=== PATIENT | female | born 1975 | race Two or more races ===

== ENCOUNTER 2018-07-16 05:51 | Inpatient (IN) | payer OTHER ==
[~2018-07-16] VITALS: Ht 152.4 cm; Wt 57.6 kg
[~2018-07-16 05:51] MED LIST: GLUC10TA18 PO; LEVO88TA3 PO; LISI10TA4 PO; OMEG350C PO
[2018-07-16 06:21] LABS: HEMATOCRIT 37.2 % (36.0-47.0)
[2018-07-16] MEDS ORDERED: IBUP200C25 PO (06:34)
[2018-07-16 06:55] LABS: HCG, SERUM QUALITATIVE NEGATIVE (NEGATIVE)
[2018-07-16] MEDS ORDERED: BUPIVACAINE HCL 0.25% 30 ML VIAL As Ordered ONE (07:08)
[2018-07-16] MEDS ORDERED: dexameTHASONE 4 MG/ML 1ML VIAL (J1100) As Ordered ONE (07:13)
[2018-07-16] MEDS ORDERED: fentaNYL 100 MCG/2 ML INJECTION (J3010) As Ordered ONE ×2 (07:13→08:32)
[2018-07-16] MEDS ORDERED: PROPOFOL 200 MG/20 ML VIAL As Ordered ONE (07:13)
[2018-07-16] MEDS ORDERED: LIDOCAINE 2% INJ 100 MG/5 ML SDV (FOR ANES.) As Ordered ONE (07:13)
[2018-07-16] MEDS ORDERED: ROCURONIUM BROMIDE 50 MG/5 ML VIAL As Ordered ONE ×2 (07:13→08:10)
[2018-07-16] MEDS ORDERED: MIDAZOLAM INJ 2 MG/2 ML VIAL (J2250) As Ordered ONE (07:15)
[2018-07-16] MEDS ORDERED: LR 1,000 ML IV ONE (07:15)
[2018-07-16] MEDS ORDERED: PHENYLephrine HCL 500 MCG/5 ML (100MCG/ML) SYRINGE (J2370) As Ordered ONE (07:44)
[2018-07-16] MEDS ORDERED: HYDROmorphone HCL 2 MG/ML 1ML VIAL (J1170) As Ordered ONE (08:08)
[2018-07-16] MEDS ORDERED: ESMOLOL INJ 100MG/10ML VIAL As Ordered ONE (08:34)
[2018-07-16] MEDS ORDERED: FLUORESCEIN 10% (100MG/ML) 5 ML VIAL As Ordered ONE (10:00)
[2018-07-16] MEDS ORDERED: PERCOCET 5MG/325MG TAB PO PRN ×3 (10:45→11:00)
[2018-07-16] MEDS ORDERED: ONDANSETRON 4MG/2ML VIAL (J2405) IV PRN ×2 (10:45→11:00)
[2018-07-16] MEDS: LR 1,000 ML IV SCH ×2 (11:00→18:12)
[2018-07-16] MEDS ORDERED: fentaNYL 100 MCG/2 ML INJECTION (J3010) IV PRN (11:00)
[2018-07-16] MEDS ORDERED: HYDROMORPHONE HCL 0.5 MG/ 0.5 ML SYRINGE (J1170 PER 1) IV PRN (11:00)
[2018-07-16] MEDS ORDERED: LR 1,000 ML IV SCH (11:00)
[2018-07-16 13:15] VITALS: BP 102/62
[2018-07-16 13:45] VITALS: BP 104/65
--- NOTE | 2018-07-16 15:44 | IPNPDOC ---
Text Note Date of Service The patient was seen on 07/16/18. NOTE POD 0 Ahsan is a 43yo F with AUB-L and dysmenorrhea now s/p uncomplicated LAVH with bilateral salpingectomy and cystoscopy, doing well the afternoon of POD 0. She notes she doesn't have any real pain in her abdomen, just very slight discomfort. She has been sleeping on and off since coming to her room from recovery. She has dodge in place draining clear yellow urine. Has not yet been out of bed to ambulate. She is drinking water without nausea or emesis, has not yet tried to eat. No f/c/CP/SOB. Vitals wnl, afebrile General: WDWN, NAD, resting in bed comfortably Abdomen: soft, appropriately tender to palpation without rebound or guarding, 3 trocar sites intact with no erythema/drainage and dermabond overlying Extremities: shawn hose on, no pain with palpation of calves UOP >75ml/hr Labs: pre-op H/H 12/37.2 Assessment: Ahsan is a 43yo F with AUB-L and dysmenorrhea now s/p uncomplicated LAVH with bilateral salpingectomy and cystoscopy, doing well the afternoon of POD 0. Pain well controlled, vitals wnl, benign exam. Hemodynamically stable with no e/o infection. Plan: -routine post-op care -vitals q4hr -regular diet, encourage hydration -IV toradol and PO percocet prn pain, also K pad -keep indwelling dodge until 0700 tomorrow then 6hr due to void after removal -ok to shower in the morning after catheter removed -CBC in the am -encourage use of IS and ambulation -anticipate discharge home tomorrow if meeting all milestones MD [facility] Fishbone, I+O Km MIRELES, I+O Laboratory Tests 07/16/18 06:04 Vital Signs Date Time Temp Pulse Resp B/P (MAP) Pulse Ox O2 Delivery O2 Flow Rate FiO2 07/16/18 12:53 66 16 126/73 (90) 97 07/16/18 12:00 97 07/16/18 11:35 2 Melissa Walter MD Jul 16, 2018 15:44
--- NOTE | 2018-07-16 17:46 | RO ---
DATE OF PROCEDURE: 07/16/2018 PREPROCEDURE DIAGNOSIS: Abnormal uterine bleeding - leiomyoma, dysmenorrhea. POSTPROCEDURE DIAGNOSIS: Abnormal uterine bleeding - leiomyoma, dysmenorrhea. PROCEDURE: Laparoscopic-assisted vaginal hysterectomy with bilateral salpingectomy and cystoscopy. SURGEON: Melissa Walter MD TILE CLASSIFIER: Manish Avila MD ANESTHESIA: [facility] CLINICAL SERVICE: Gynecology INDICATION FOR OPERATION: Ahsan is a 43-year-old female who has a longstanding history of abnormal uterine bleeding related to leiomyoma as well as dysmenorrhea. She was previously worked up at [facility] for hysterectomy, but unable to perform the procedure prior to [facility]. Endometrial biopsy was repeated, and after repeat counseling, the patient still desired hysterectomy. MATERIAL FORWARDED TO THE LAB: Uterus, cervix and portions of bilateral fallopian tubes. DESCRIPTION OF FINDINGS: Laparoscopic findings included large posterior uterine fibroid. Fallopian tubes were interrupted from prior tubal ligation. Ovaries were normal in appearance. Liver edge was normal in appearance. The appendix was not visualized. Hemostasis noted along all pedicle lines. Cystoscopy revealed a bubble at the dome of the bladder. No sutures or defects present and dye was present within the bladder. INFECTION CLASSIFICATION: II ESTIMATED BLOOD LOSS: 250 mL. IV FLUIDS: 1200 mL of lactated Ringer's. URINE OUTPUT: 200 mL. DESCRIPTION OF PROCEDURE: After obtaining informed consent, the patient was taken to the operating room. General endotracheal anesthesia was established, and the patient was placed in low lithotomy position. The patient was prepped and draped in usual sterile fashion. She received 2 grams of IV Ancef prophylactically. She was placed in Trendelenburg position. Niño catheter was placed. [place] speculum was placed in the vagina and visualization of the cervix was obtained. A brqlbj-km-ehbbe suture was placed on the anterior lip of the cervix using #0 Vicryl. I then placed the VCare uterine manipulator through the cervix after dilating with Hanks dilators. The uterus sounded to 7 cm. Once the VCare was positioned appropriately, it was tied down and the bivalve speculum was removed. The patient was taken out of Trendelenburg position, and a 5 mm incision was made in the infraumbilical fold beneath the subcutaneous tissue after anesthetizing with 0.25% Marcaine. Sheyla clamp was used to spread the subcutaneous tissue. Lower abdominal wall was manually grabbed and lifted up. Optiview trocar was placed at a 90 degree angle, laparoscope was advanced through the port and intra-abdominal placement was confirmed. No injury was noted below the point of entry. Continuous flow carbon dioxide began to establish a pneumoperitoneum at 15 mmHg pressure. Two other trocars were placed after anesthetizing with 0.25% marcaine, one in the right lower quadrant and one in the left lower quadrant, using direct visualization to avoid any prominent vessels and also any internal organs. Trocars were 5 mm in size and these were placed without issue. We then completed a thorough pelvic and abdominal survey beginning at the anterior cul-de-sac, anterior portion of the uterus, which were both normal in appearance. The left and right fallopian tubes were previously interrupted from a tubal ligation. Round ligaments, broad ligaments and ovaries were observed to be normal. There was a large uterine fibroid on the posterior aspect of the uterus, but the posterior cul-de-sac itself was observed to be normal. The survey of the upper abdomen revealed a normal liver edge. At that point, we used the LigaSure to excise just under the fimbria of the fallopian tubes and along the portion of the fallopian tube that was remaining on both sides, and these were removed up through the ports and handed off the field. Next, the left broad ligament was transected using the LigaSure. The ureters were noted bilaterally with adequate vermiculation. The utero-ovarian ligament was then transected on that side using the LigaSure, and the anterior leaf of the broad ligament was opened, and we attempted to skeletonize the uterine arteries on that side and then cauterize. This was done with the LigaSure down to the level of the internal os, and at this time, the left side of the bladder flap was made using the LigaSure as well as using traction. The same exact procedure was done on the right side. At this time, hemostasis was noted. We then performed the colpotomy using the laparoscopic monopolar L hook, excising along the cervical cup of the VCare. There was some extra bleeding, probably from a cervical branch of the uterine artery on the right side but that was coagulated with the LigaSure and complete hemostasis was ensured. Once the entire colpotomy was performed all around the cup of the VCare, we then turned our attention to the vagina. The patient was placed in high lithotomy position. The VCare was removed with the uterus and cervix from the vagina and retractors were placed in the vagina, suctioning was performed to remove any clots that had been present, and then the vaginal cuff was closed using #0 Vicryl in a running locking suture with uterosacral plication. Vagina was copiously irrigated and hemostasis was noted. All instruments were then removed from the vagina. Cystoscopy was completed in usual fashion showing fluorescein dye within the bladder, and there was a bubble at the dome of the bladder. No defects or sutures noted within the bladder. Cystoscope was removed from the urethra, and the Niño catheter was replaced. Attention was then paid back to the abdomen where pneumoperitoneum was reestablished. Reevaluation of the abdomen and pelvis showed adequate hemostasis along all pedicle lines. We placed Alex within the pelvis and noted again no bleeding. Lateral ports were removed under direct visualization followed by the umbilical port site after releasing all of the pneumoperitoneum. The port sites were reapproximated with #4-0 Monocryl sutures underlying the skin and then Dermabond overlying. I anesthetized with some more 0.25% Marcaine at all of the trocar sites. Hemostasis was noted for all incisions. The patient was taken out of lithotomy position. All counts were correct times two. The patient was awakened from general anesthesia and taken to recovery room in stable condition. ANNIE
[2018-07-16 18:00] VITALS: BP 117/72
[2018-07-16] MEDS: DOCUSATE SODIUM 100 MG CAP PO SCH (20:25)
[2018-07-16] MEDS: KETOROLAC 30 MG/ML VIAL (J1885) IV PRN (20:26)
[2018-07-16 22:00] VITALS: BP 105/60
[2018-07-17 02:00] VITALS: BP 102/57
[2018-07-17] MEDS: LR 1,000 ML IV SCH ×2 (03:00→11:03)
[2018-07-17 06:00] VITALS: BP 101/56
[2018-07-17 07:05] LABS: BASO % 0.1 % (0.0-1.0); EOS # 0.1 10^3/uL (0.0-0.50); EOS % 0.4 % (0.0-3.0); HEMATOCRIT 28.2 % (36.0-47.0); HEMOGLOBIN 9.1 g/dl (12.0-15.5); LYMPH # 3.2 10^3/uL (1.5-4.5); LYMPH % 28.5 % (24.0-44.0); MEAN CORPUSCULAR HGB CONC 32.3 g/dl (32.0-36.5); MEAN CORPUSCULAR VOLUME 83.7 fl (80.0-96.0); MONO # 0.8 10^3/uL (0.0-0.8); MONO % 6.7 % (0.0-5.0); NEUTROPHILS # 7.2 10^3/uL (1.8-7.7); NEUTROPHILS % 63.8 % (36.0-66.0); PLATELET COUNT, AUTOMATED 257 10^3/uL (150-450); RED BLOOD COUNT 3.37 10^6/uL (4.00-5.40); WHITE BLOOD COUNT 11.2 10^3/uL (4.0-10.0)
[2018-07-17] MEDS: DOCUSATE SODIUM 100 MG CAP PO SCH (09:06)
[2018-07-17] MEDS: KETOROLAC 30 MG/ML VIAL (J1885) IV PRN (10:02)
[2018-07-17] MEDS ORDERED: COLA100C5 PO (12:26)
[2018-07-17] MEDS ORDERED: OXYC1TAB23 PO ×2 (12:26)
--- NOTE | 2018-07-17 12:30 | IPNPDOC ---
Text Note Date of Service The patient was seen on 07/17/18. NOTE POD 1 Ahsan is a 43yo F with AUB-L and dysmenorrhea now s/p uncomplicated LAVH with bilateral salpingectomy and cystoscopy, doing well the afternoon of POD 1. She still doesn't have any real pain in her abdomen, just very slight discomfort. Niño was removed this morning and she has voided 3 times without issue. Tolerating soup and liquids, states throat is a bit scratchy so not yet wanting anything firmer than that to eat. Took a shower this morning and ambulating without lightheadedness. No f/c/n/v/CP/SOB. Vitals wnl, afebrile General: WDWN, NAD, resting in bed comfortably Abdomen: soft, appropriately tender to palpation without rebound or guarding, 3 trocar sites intact with no erythema/drainage and dermabond overlying Extremities: no pain with palpation of calves UOP >75ml/hr Labs: pre-op H/H 12/37.2 post-op H/H 9.1/28.2 Assessment: Ahsan is a 43yo F with AUB-L and dysmenorrhea now s/p uncomplicated LAVH with bilateral salpingectomy and cystoscopy, doing well the afternoon of POD 1. Pain well controlled, vitals wnl, benign exam. Hemodynamically stable with no e/o infection. Plan: -discharge to home -has home meds: motrin, percocet, colace -follow up with Dr. Walter scheduled 08/01 in [place] [facility] -keep incisions clean and dry, shower as normal -no heavy lifting and complete vaginal rest until cleared at future visit -return precautions discussed at length: fevers, chills, increasing abdominal pain, heavy vaginal bleeding, foul smelling vaginal discharge or any other concerns Dr. Melissa Walter MD VS,Km, I+O VS, Km, I+O Laboratory Tests 07/17/18 06:51 Red Blood Count 3.37 L, Mean Corpuscular Volume 83.7, Mean Corpuscular Hemoglobin 27.0, Mean Corpuscular Hemoglobin Concent 32.3, Red Cell Distribution Width 13.1, Neutrophils (%) (Auto) 63.8, Lymphocytes (%) (Auto) 28.5, Monocytes (%) (Auto) 6.7 H, Eosinophils (%) (Auto) 0.4, Basophils (%) (Auto) 0.1, Neutrophils # (Auto) 7.2, Lymphocytes # (Auto) 3.2, Monocytes # (Auto) 0.8, Eosinophils # (Auto) 0.1, Basophils # (Auto) 0.0 Vital Signs Date Time Temp Pulse Resp B/P (MAP) Pulse Ox O2 Delivery O2 Flow Rate FiO2 07/17/18 06:00 98.2 74 16 101/56 (71) 96 07/16/18 11:35 2 I&O- Last 24 Hours up to 6 AM 07/17/18 06:00 Intake Total 3045 ml Output Total 3000 ml Balance 45 ml Melissa Walter MD Jul 17, 2018 12:30
--- NOTE | 2018-07-17 12:34 | DS.PDOC ---
Discharge Summary General Date of Admission Jul 16, 2018 at 05:51 Date of Discharge Jul 17, 2018 Attending Physician: Melissa Walter MD Discharge Summary PROCEDURES PERFORMED DURING STAY: laparoscopic assisted vaginal hysterectomy, bilateral salpingectomy, cystoscopy ADMITTING DIAGNOSES: 1. abnormal uterine bleeding-leiomyoma, dysmenorrhea DISCHARGE DIAGNOSES: 1. abnormal uterine bleeding-leiomyoma, dysmenorrhea COMPLICATIONS/CHIEF COMPLAINT: Abnormal Uterine Bleeding, Dysmenorrhea, Endometriosis. HISTORY OF PRESENT ILLNESS/HOSPITAL COURSE: Ahsan is a 43yo F with AUB-L and dysmenorrhea now s/p uncomplicated LAVH with bilateral salpingectomy and cystoscopy. She had a benign post-operative course and on POD 1 she was discharged with pain well controlled, vitals wnl, benign exam. She was hemodynamically stable with no e/o infection. DISCHARGE MEDICATIONS: Please see below. ALLERGIES: Please see below. PHYSICAL EXAMINATION ON DISCHARGE: Vitals wnl, afebrile General: WDWN, NAD, resting in bed comfortably Abdomen: soft, appropriately tender to palpation without rebound or guarding, 3 trocar sites intact with no erythema/drainage and dermabond overlying Extremities: no pain with palpation of calves LABORATORY DATA: pre-op H/H 12/37.2 post-op H/H 9.1/28.2 DIET: regular DISPOSITION: Home DISCHARGE PLAN/INSTRUCTIONS: -discharge to home -has home meds: motrin, percocet, colace -follow up with Dr. Walter scheduled 08/01 in [place] [facility] -keep incisions clean and dry, shower as normal -no heavy lifting and complete vaginal rest until cleared at future visit -return precautions discussed at length: fevers, chills, increasing abdominal pain, heavy vaginal bleeding, foul smelling vaginal discharge or any other concerns DISCHARGE CONDITION: Stable TIME SPENT ON DISCHARGE: Greater than [address] Melissa Walter MD Vital Signs/I&Os Vital Signs Date Time Temp Pulse Resp B/P (MAP) Pulse Ox O2 Delivery O2 Flow Rate FiO2 07/17/18 06:00 98.2 74 16 101/56 (71) 96 07/16/18 11:35 2 I&O- Last 24 Hours up to 6 AM 07/17/18 06:00 Intake Total 3045 ml Output Total 3000 ml Balance 45 ml Laboratory Data Labs 24H Laboratory Tests 2 07/17/18 06:51: Immature Granulocyte % (Auto) 0.5, White Blood Count 11.2H, Red Blood Count 3.37L, Hemoglobin 9.1#L, Hematocrit 28.2L, Mean Corpuscular Volume 83.7, Mean Corpuscular Hemoglobin 27.0, Mean Corpuscular Hemoglobin Concent 32.3, Red Cell Distribution Width 13.1, Platelet Count 257, Neutrophils (%) (Auto) 63.8, Lymphocytes (%) (Auto) 28.5, Monocytes (%) (Auto) 6.7H, Eosinophils (%) (Auto) 0.4, Basophils (%) (Auto) 0.1, Neutrophils # (Auto) 7.2, Lymphocytes # (Auto) 3.2, Monocytes # (Auto) 0.8, Eosinophils # (Auto) 0.1, Basophils # (Auto) 0.0, Nucleated Red Blood Cells % (auto) 0.0 CBC/BMP Laboratory Tests 07/17/18 06:51 Red Blood Count 3.37 L, Mean Corpuscular Volume 83.7, Mean Corpuscular Hemoglobin 27.0, Mean Corpuscular Hemoglobin Concent 32.3, Red Cell Distribution Width 13.1, Neutrophils (%) (Auto) 63.8, Lymphocytes (%) (Auto) 28.5, Monocytes (%) (Auto) 6.7 H, Eosinophils (%) (Auto) 0.4, Basophils (%) (Auto) 0.1, Neutrophils # (Auto) 7.2, Lymphocytes # (Auto) 3.2, Monocytes # (Auto) 0.8, Eosinophils # (Auto) 0.1, Basophils # (Auto) 0.0 Discharge Medications Scheduled ([place]-3 350 mg) 1 Cap Cap, 1 CAP PO DAILY, (Reported) Docusate Sodium (Colace) 100 Mg Cap, 1 CAP PO BID, (Reported) Glipizide (Glucotrol Xl) 10 Mg Tab, 10 MG PO DAILY, (Reported) Levothyroxine Sodium (Synthroid) 88 Mcg Tab, 88 MCG PO DAILY, (Reported) Lisinopril (Lisinopril) 10 Mg Tab, 10 MG PO DAILY, (Reported) Scheduled PRN Oxycodone/Acetaminophen (Oxycodone/Acetaminophen 5-325 mg) 1 Tab Tab, 2 TAB PO Q6HP PRN for pain, (Reported) Oxycodone/Acetaminophen (Oxycodone/Acetaminophen 5-325 mg) 1 Tab Tab, 1 TAB PO Q4HP PRN for pain, (Reported) Miscellaneous Medications Ibuprofen (Ibuprofen) 200 Mg Cap, 200 MG PO, (Reported) Allergies Coded Allergies: No Known Allergies (Unverified , 07/09/18) Melissa Walter MD Jul 17, 2018 12:34
== END 2018-07-17 12:50 | disposition home or self-care (01) | DRG 743 ==
LOC: M OR 05:51 → M MS5PR 13:10
PROVIDERS: ADMIT Obstetrics & Gynecology; ATTEND Obstetrics & Gynecology
PROC: 0UTC4ZZ Resection of Cervix, Percutaneous Endoscopic Approach (ICD-10-PCS; 2018-07-16)
PROC: 0TJB8ZZ Inspection of Bladder, Via Natural or Artificial Opening Endoscopic (ICD-10-PCS; 2018-07-16)
PROC: 0UT94ZZ Resection of Uterus, Percutaneous Endoscopic Approach (ICD-10-PCS; principal; 2018-07-16 07:30)
PROC: 0UT74ZZ Resection of Bilateral Fallopian Tubes, Percutaneous Endoscopic Approach (ICD-10-PCS; 2018-07-16 07:30)
DX: N94.6 Dysmenorrhea, unspecified (principal); N93.9 Abnormal uterine and vaginal bleeding, unspecified; D25.1 Intramural leiomyoma of uterus; D25.2 Subserosal leiomyoma of uterus; E03.9 Hypothyroidism, unspecified; I10 Essential (primary) hypertension; E11.9 Type 2 diabetes mellitus without complications; E55.9 Vitamin D deficiency, unspecified; E66.3 Overweight; Z68.25 Body mass index [BMI] 25.0-25.9, adult; Z79.84 Long term (current) use of oral hypoglycemic drugs; Z79.899 Other long term (current) drug therapy

== ENCOUNTER 2018-10-28 11:06 | Emergency (ER) | payer OTHER ==
[~2018-10-28] VITALS: Ht 152.4 cm; Wt 57.7 kg
[~2018-10-28 11:06] MED LIST changes: +COLA100C5 PO; +IBUP200C25 PO; +OXYC1TAB23 PO
[2018-10-28] MEDS ORDERED: LISI-542 PO (11:30)
[2018-10-28] MEDS ORDERED: GLIP10TA18 (11:30)
[2018-10-28] MEDS ORDERED: CYCL5TAB (11:30)
[2018-10-28] MEDS ORDERED: SYNT88TA2 (11:30)
[2018-10-28] MEDS ORDERED: MEDR4PAK PO (16:42)
[2018-10-28 16:48] VITALS: BP 164/82
--- NOTE | 2018-10-28 17:24 | REP ---
RIGHT SHOULDER, THREE VIEWS: SHOULDER: There is no evidence of an acute fracture, dislocation or intrinsic bone disease. IMPRESSION: No fracture or dislocation. Electronically Signed by Humza Brantley MD 10/29/2018 04:24 P
--- NOTE | 2018-10-28 17:25 | REP ---
RIGHT CLAVICLE, TWO VIEWS: Two views of the right clavicle are performed and demonstrate no fracture, dislocation, or intrinsic bone disease. IMPRESSION: No fracture or dislocation. Electronically Signed by Humza Brantley MD 10/29/2018 04:24 P
== END 2018-10-28 16:53 | disposition home or self-care (01) ==
LOC: M ED 11:06
DX: S13.4XXA Sprain of ligaments of cervical spine, initial encounter (principal); V49.49XA Driver injured in collision with other motor vehicles in traffic accident, initial encounter; Y92.410 Unspecified street and highway as the place of occurrence of the external cause; M54.12 Radiculopathy, cervical region; E11.9 Type 2 diabetes mellitus without complications; I10 Essential (primary) hypertension; E03.9 Hypothyroidism, unspecified; Z79.899 Other long term (current) drug therapy; Z79.890 Hormone replacement therapy; Z79.84 Long term (current) use of oral hypoglycemic drugs

== ENCOUNTER 2019-02-28 16:01 | Emergency (ER) | payer OTHER ==
[~2019-02-28] VITALS: Ht 152.4 cm; Wt 53.3 kg
[~2019-02-28 16:01] MED LIST changes: +CYCL5TAB; +GLIP10TA18; +LISI-542 PO; +MEDR4PAK PO; +SYNT88TA2
[2019-02-28] MEDS ORDERED: TRUL10IN SC (16:44)
[2019-02-28] MEDS ORDERED: JARD1TAB PO (16:44)
[2019-02-28 16:59] LABS: BASO % 0.2 % (0.0-1.0); EOS # 0.2 10^3/uL (0.0-0.5); EOS % 1.2 % (0.0-3.0); HEMATOCRIT 44.8 % (36.0-47.0); HEMOGLOBIN 14.8 g/dl (12.0-15.5); LYMPH % 31.3 % (24.0-44.0); MEAN CORPUSCULAR HEMOGLOBIN 28.1 pg (27.0-33.0); MEAN CORPUSCULAR VOLUME 85.2 fl (80.0-96.0); MONO # 0.9 10^3/uL (0.0-0.8); MONO % 6.8 % (0.0-5.0); NEUTROPHILS # 7.7 10^3/uL (1.5-8.5); NEUTROPHILS % 60.3 % (36.0-66.0); PLATELET COUNT, AUTOMATED 350 10^3/uL (150-450); RED BLOOD COUNT 5.26 10^6/uL (4.00-5.40); WHITE BLOOD COUNT 12.8 10^3/uL (4.0-10.0)
[2019-02-28 17:37] LABS: BLOOD UREA NITROGEN 21 MG/DL (7-18); CALCIUM LEVEL 9.6 MG/DL (8.5-10.1); CARBON DIOXIDE LEVEL 26 MEQ/L (21-32); CHLORIDE LEVEL 103 MEQ/L (98-107); CK-MB VALUE MASS < 1.0 NG/ML (<3.6); CPK CREATINE PHOSPHOKINASE 48 U/L (26-192); CREATININE FOR GFR 0.79 MG/DL (0.55-1.30); FREE T4 1.59 NG/DL (0.76-1.46); GLOMERULAR FILTRATION RATE > 60.0 (>58); GLUCOSE, FASTING 158 MG/DL (70-100); MB/CK RELATIVE INDEX 2.08 (< OR =4); POTASSIUM SERUM 4.2 MEQ/L (3.5-5.1); SODIUM LEVEL 135 MEQ/L (136-145); THYROID STIMULATING HORMONE 0.147 uIU/ML (0.358-3.740); TROPONIN I < 0.02 NG/ML (< 0.10)
[2019-02-28] MEDS ORDERED: NS 1,000 ML IV ONE (18:15)
--- NOTE | 2019-02-28 19:09 | REP ---
Chest x-ray: Two views. History: Syncope . Comparison study: No comparison chest x-ray. . Findings: The lungs are well inflated and free of infiltrate. The pleural angles are sharp. The heart size is normal. Pulmonary vasculature is not increased. No significant bony abnormality is seen. Monitoring electrodes are visible. Impression: Negative chest x-ray. Electronically Signed by Derik Moreno MD 02/28/2019 07:01 P
[2019-02-28 19:20] VITALS: BP 120/76
--- NOTE | 2019-02-28 20:21 | ECGEPIP ---
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
== END 2019-02-28 19:38 | disposition home or self-care (01) ==
LOC: M ED 16:01
DX: R55 Syncope and collapse (principal); E11.9 Type 2 diabetes mellitus without complications; M79.7 Fibromyalgia; I95.1 Orthostatic hypotension; R94.6 Abnormal results of thyroid function studies; Z79.899 Other long term (current) drug therapy

== ENCOUNTER 2019-03-03 16:01 | Emergency (ER) | payer OTHER ==
[~2019-03-03] VITALS: Ht 152.4 cm; Wt 55.2 kg
[~2019-03-03 16:01] MED LIST changes: +JARD1TAB PO; +TRUL10IN SC
[2019-03-03] MEDS ORDERED: ATOR1TAB19 PO (16:25)
[2019-03-03 18:21] LABS: CK-MB VALUE MASS < 1.0 NG/ML (<3.6); CPK CREATINE PHOSPHOKINASE 57 U/L (26-192); MB/CK RELATIVE INDEX 1.75 (< OR =4); TROPONIN I < 0.02 NG/ML (< 0.10)
[2019-03-03 18:45] VITALS: BP 109/62
--- NOTE | 2019-03-04 10:05 | ECGEPIP ---
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
== END 2019-03-03 19:03 | disposition home or self-care (01) ==
LOC: M ED 16:01
DX: R07.89 Other chest pain (principal); E11.9 Type 2 diabetes mellitus without complications; E03.9 Hypothyroidism, unspecified; E78.00 Pure hypercholesterolemia, unspecified; Z79.899 Other long term (current) drug therapy

== ENCOUNTER 2019-03-23 17:29 | Emergency (ER) | payer OTHER ==
[~2019-03-23] VITALS: Ht 152.4 cm; Wt 51.8 kg
[~2019-03-23 17:29] MED LIST changes: +ATOR1TAB19 PO
[2019-03-23] MEDS ORDERED: REGL10TA6 PO (18:08)
[2019-03-23] MEDS ORDERED: METOCLOPRAMIDE INJ 10MG/2ML VIAL (J2765) IV ONE (18:15)
[2019-03-23] MEDS ORDERED: NS 1,000 ML IV ONE (18:15)
[2019-03-23 18:37] LABS: BASO % 0.1 % (0.0-1.0); EOS # 0.1 10^3/uL (0.0-0.5); EOS % 1.1 % (0.0-3.0); HEMATOCRIT 40.4 % (36.0-47.0); HEMOGLOBIN 12.8 g/dl (12.0-15.5); LYMPH # 3.2 10^3/uL (1.5-5.0); LYMPH % 31.4 % (24.0-44.0); MEAN CORPUSCULAR HEMOGLOBIN 27.1 pg (27.0-33.0); MEAN CORPUSCULAR HGB CONC 31.7 g/dl (32.0-36.5); MEAN CORPUSCULAR VOLUME 85.6 fl (80.0-96.0); MONO # 0.6 10^3/uL (0.0-0.8); MONO % 6.2 % (0.0-5.0); NEUTROPHILS # 6.2 10^3/uL (1.5-8.5); NEUTROPHILS % 60.8 % (36.0-66.0); PLATELET COUNT, AUTOMATED 304 10^3/uL (150-450); RED BLOOD COUNT 4.72 10^6/uL (4.00-5.40); WHITE BLOOD COUNT 10.2 10^3/uL (4.0-10.0)
[2019-03-23 19:13] LABS: ALBUMIN 3.3 GM/DL (3.2-5.2); ALT/SGPT 21 U/L (12-78); BILIRUBIN,DIRECT < 0.1 MG/DL (0.0-0.2); BILIRUBIN,TOTAL 0.3 MG/DL (0.2-1.0); LIPASE 75 U/L (73-393); TOTAL PROTEIN 6.8 GM/DL (6.4-8.2)
[2019-03-23 19:43] VITALS: BP 123/73
== END 2019-03-23 20:00 | disposition home or self-care (01) ==
LOC: M ED 17:29
DX: R11.10 Vomiting, unspecified (principal); E11.9 Type 2 diabetes mellitus without complications; I10 Essential (primary) hypertension; E78.5 Hyperlipidemia, unspecified; E07.9 Disorder of thyroid, unspecified; Z79.899 Other long term (current) drug therapy
CPT/HCPCS: 80047; 80076; 83690; 85025; 96361; 96374; 99284; J2765

== ENCOUNTER 2019-03-27 16:07 | Emergency (ER) | payer OTHER ==
[~2019-03-27] VITALS: Ht 152.4 cm; Wt 50.8 kg
[~2019-03-27 16:07] MED LIST changes: +REGL10TA6 PO; -SYNT88TA2; +SYNT88TA2 PO
[2019-03-27 16:54] LABS: BASO % 0.2 % (0.0-1.0); EOS # 0.1 10^3/uL (0.0-0.5); EOS % 0.3 % (0.0-3.0); HEMOGLOBIN 13.1 g/dl (12.0-15.5); LYMPH # 3.3 10^3/uL (1.5-5.0); LYMPH % 21.7 % (24.0-44.0); MEAN CORPUSCULAR HEMOGLOBIN 26.8 pg (27.0-33.0); MEAN CORPUSCULAR HGB CONC 31.2 g/dl (32.0-36.5); MEAN CORPUSCULAR VOLUME 86.1 fl (80.0-96.0); MONO # 0.8 10^3/uL (0.0-0.8); MONO % 5.5 % (0.0-5.0); NEUTROPHILS # 10.8 10^3/uL (1.5-8.5); PLATELET COUNT, AUTOMATED 347 10^3/uL (150-450); RED BLOOD COUNT 4.88 10^6/uL (4.00-5.40)
[2019-03-27 17:11] LABS: ALBUMIN 3.7 GM/DL (3.2-5.2); ALT/SGPT 21 U/L (12-78); BILIRUBIN,DIRECT 0.2 MG/DL (0.0-0.2); BILIRUBIN,TOTAL 0.6 MG/DL (0.2-1.0); BLOOD UREA NITROGEN 14 MG/DL (7-18); CALCIUM LEVEL 9.4 MG/DL (8.5-10.1); CARBON DIOXIDE LEVEL 27 MEQ/L (21-32); CHLORIDE LEVEL 102 MEQ/L (98-107); CREATININE FOR GFR 0.69 MG/DL (0.55-1.30); GLOMERULAR FILTRATION RATE > 60.0 (>58); GLUCOSE, FASTING 135 MG/DL (70-100); LIPASE 68 U/L (73-393); POTASSIUM SERUM 4.3 MEQ/L (3.5-5.1); SODIUM LEVEL 137 MEQ/L (136-145); TOTAL PROTEIN 7.8 GM/DL (6.4-8.2)
[2019-03-27] MEDS ORDERED: DOXY150C PO (17:25)
[2019-03-27] MEDS ORDERED: METF750T36 PO (17:25)
[2019-03-27] MEDS ORDERED: ONDA4TAB6 PO (17:27)
[2019-03-27] MEDS ORDERED: PANTOPRAZOLE 40MG INJ (PROTONIX) (C9113) IV ONE (18:15)
[2019-03-27] MEDS ORDERED: KETOROLAC 30 MG/ML VIAL (J1885) IV ONE (18:15)
[2019-03-27] MEDS ORDERED: METOCLOPRAMIDE INJ 10MG/2ML VIAL (J2765) IV ONE (18:15)
[2019-03-27] MEDS ORDERED: NS 1,000 ML IV ONE (18:15)
[2019-03-27] MEDS ORDERED: GI COCKTAIL 50ML BTL(HYOSCYAMINE/MAALOX/LIDOCAINE VISCOUS)(1:3:1) PO ONE (18:15)
[2019-03-27] MEDS ORDERED: ISOVUE-370 76% 100ML VIAL (Q9967) As Ordered ONE (18:23)
[2019-03-27 18:56] LABS: ERYTHROCYTE SEDIMENTATION RATE 26 mm/hr (0-20)
--- NOTE | 2019-03-27 18:56 | REPVR ---
PROCEDURE INFORMATION: Exam: CT Head Without Contrast Exam date and time: 03/27/2019 6:05 PM Clinical history: 44 years old, female; Other: Umbilical pain, [id number]; Additional info: Umbilical abd pain, v x 6wks TECHNIQUE: Imaging protocol: Computed tomography of the head without contrast. Radiation optimization: All CT scans at this facility use at least one of these dose optimization techniques: automated exposure control; mA and/or kV adjustment per patient size (includes targeted exams where dose is matched to clinical indication); or iterative reconstruction. COMPARISON: No relevant prior studies available. FINDINGS: Brain: No acute intracranial hemorrhage, cerebral edema, or midline shift. Ventricles: No hydrocephalus. Bones/joints: No acute fracture. Sinuses: No acute sinusitis. Mastoid air cells: Visualized mastoid air cells are well aerated. Soft tissues: Unremarkable. IMPRESSION: No acute intracranial abnormality. Electronically signed by: Jesus Jordan On 03/27/2019 18:56:07 PM
[2019-03-27 18:57] LABS: FREE T4 1.43 NG/DL (0.76-1.46); MAGNESIUM LEVEL 1.6 MG/DL (1.8-2.4); THYROID STIMULATING HORMONE 0.083 uIU/ML (0.358-3.740)
--- NOTE | 2019-03-27 19:02 | REPVR ---
PROCEDURE INFORMATION: Exam: CT Abdomen And Pelvis With Contrast Exam date and time: 03/27/2019 6:05 PM Clinical history: 44 years old, female; Vomiting; Abdominal pain; Periumbilical; Additional info: Umbilical abd pain, v x 6wks TECHNIQUE: Imaging protocol: Computed tomography of the abdomen and pelvis with intravenous contrast. Radiation optimization: All CT scans at this facility use at least one of these dose optimization techniques: automated exposure control; mA and/or kV adjustment per patient size (includes targeted exams where dose is matched to clinical indication); or iterative reconstruction. Contrast material: ISOVUE 370; Contrast volume: 100 ml; Contrast route: IV; COMPARISON: No relevant prior studies available. FINDINGS: Liver: Several ill-defined enhancing areas or lesions are noted within the liver. Several of the areas measure up to 2.5 cm. These could represent flash filling hemangiomas, transient hepatic attenuation differences, and/or areas of focal fatty sparing. This could be further evaluated with an ultrasound or a follow-up liver mass protocol enhanced MRI or CT. Gallbladder and bile ducts: Normal. No calcified stones. No ductal dilation. Pancreas: Normal. No ductal dilation. Spleen: Normal. No splenomegaly. Adrenals: Normal. No mass. Kidneys and ureters: Normal. No hydronephrosis. Stomach and bowel: Unremarkable. No obstruction. No mucosal thickening. Appendix: A normal appendix is seen within the right lower quadrant. Intraperitoneal space: Unremarkable. No free air. No significant fluid collection. Vasculature: Unremarkable. No abdominal aortic aneurysm. Lymph nodes: Unremarkable. No enlarged lymph nodes. Bladder: Unremarkable as visualized. Reproductive: A 15 mm corpus luteal cyst is noted in the right ovary. The patient is status post hysterectomy. Bones/joints: Unremarkable. No acute fracture. Soft tissues: Unremarkable. IMPRESSION: 1. Several ill-defined enhancing lesions within the liver as discussed above. 2. 15 mm corpus luteal cyst in the right ovary COMMENT: Consistent with the [employer]'s Incidental Findings Committee Report (J Am Annabella Radiol 2010): Unless the patient's specific circumstances suggest otherwise, any liver lesion 0.5 cm or less, any cystic kidney lesion less than 1.0 cm, and/or any adrenal lesion 1.0 cm or less not otherwise characterized in this report as possessing suspicious or indeterminate imaging features is/are highly likely to be benign and do not require follow-up imaging or biopsy. Electronically signed by: Jesus Jordan On 03/27/2019 19:02:15 PM
[2019-03-27] MEDS ORDERED: REGL10TA6 PO (21:06)
[2019-03-27] MEDS ORDERED: PROT1TAB2 PO (21:06)
[2019-03-27 21:14] VITALS: BP 111/67
--- NOTE | 2019-03-28 07:33 | ED PDOC ---
Post-Departure Follow-Up dr banks faxed formal report of ct abd/p for fu Shimon Baca MD Mar 28, 2019 07:33
== END 2019-03-27 21:31 | disposition home or self-care (01) ==
LOC: M ED 16:07
DX: G43.A1 Cyclical vomiting, in migraine, intractable (principal); R94.6 Abnormal results of thyroid function studies; R10.84 Generalized abdominal pain; N83.291 Other ovarian cyst, right side; E11.9 Type 2 diabetes mellitus without complications; I10 Essential (primary) hypertension; E78.5 Hyperlipidemia, unspecified; E03.9 Hypothyroidism, unspecified; A69.20 Lyme disease, unspecified; Z79.84 Long term (current) use of oral hypoglycemic drugs; Z79.899 Other long term (current) drug therapy
CPT/HCPCS: 36415; 70450; 74177; 80048; 80076; 81001; 83690; 83735; 84439; 84443; 85025; 85652; 86140; 96361; 96374; 96375; 99284; C9113; J1885; J2765; Q9967

== ENCOUNTER → 2020-02-03 | Outpatient (CLI) | payer OTHER ==
[~2020-02-03] MED LIST changes: +DOXY150C PO; +METF750T36 PO; +ONDA4TAB6 PO; +PROT1TAB2 PO
--- NOTE | 2020-02-12 09:34 | REP ---
LIMITED ABDOMINAL ULTRASOUND CLINICAL: Possible liver mass on recent CT. COMPARISON: CT dated 03/27/2019. TECHNIQUE: Real-time barber scale ultrasound examination using curved array transducer. FINDINGS: The liver is normal in contour, size, and parenchymal echotexture without focal hepatic lesions identified by ultrasound. The pancreas is normal in appearance. The gallbladder is unremarkable and without gallstones, wall thickening, or pericholecystic fluid. No biliary ductal dilatation is appreciated and the common bile duct measures 3.7 mm in diameter. The right kidney is normal in reniform shape and measures 9.7 x 4.6 x 4.0 cm without hydronephrosis. Visualized portions of the abdominal aorta appear normal. No ascites in the right upper quadrant. IMPRESSION: Essentially normal appearance to the liver by ultrasound. The subtle hyperdense lesions noted scattered throughout the liver on recent CT are not identifiable by ultrasound. Consider pre- and postcontrast CT or MRI of the abdomen for further investigation. MTDD
== END ==
LOC: M RAD 07:31
PROVIDERS: ATTEND Specialist
DX: R16.0 Hepatomegaly, not elsewhere classified (principal)

== ENCOUNTER → 2020-04-14 | Outpatient (CLI) | payer OTHER ==
--- NOTE | 2020-04-14 13:36 | DEXAMM ---
INDICATION: HX VIT D DEFICIENCT,EVALUATE FOR OSTEOPOROSIS. COMPARISON: None. TECHNIQUE: Bone density was measured using dual-energy x-ray absorptionmetry (DEXA). FINDINGS: AP SPINE L1-L4 BMD 1.018 g/cm2 Young Adult T-Score -1.4 Age Matched Z-Score -1.3. LT FEMUR, TOTAL BMD 0.922 g/cm2 Young Adult T-Score -0.7 Age Matched Z-Score -0.3. LT NECK BMD 0.834 g/cm2 Young Adult T-Score -1.5 Age Matched Z-Score -0.8. RT FEMUR, TOTAL BMD 0.951 g/cm2 Young Adult T-Score -0.5 Age Matched Z-Score -0.1. RT NECK BMD 0.875 g/cm2 Young Adult T-Score -1.2 Age Matched Z-Score -0.5. IMPRESSION: There is low bone density of the spine. There is low bone density of the left hip. There is low bone density of the right hip. FOLLOW-UP: Recommendation for the next bone density exam: 2 years. <Electronically signed by Everett Moreno > 04/14/20 [id number]
== END ==
LOC: M WHC 12:26
PROVIDERS: ATTEND Podiatrist Foot & Ankle Surgery
DX: E55.9 Vitamin D deficiency, unspecified (principal); M81.0 Age-related osteoporosis without current pathological fracture

== ENCOUNTER → 2020-06-02 | Outpatient (REF) | payer OTHER ==
[~2020-06-02] MED LIST changes: -LISI-542 PO; +LISI-898 PO; +LISI10TA22 PO; -LISI10TA4 PO
[2020-06-02 18:35] LABS: MAU/CREAT RATIO 6.9 MCG/MG (0.0-30.0)
== END ==
LOC: M LAB REF 16:46
PROVIDERS: ATTEND Nurse Practitioner Family
DX: E11.65 Type 2 diabetes mellitus with hyperglycemia (principal)

== ENCOUNTER 2021-03-02 20:37 | Emergency (ER) | payer OTHER ==
[~2021-03-02] VITALS: Ht 152.4 cm; Wt 56.7 kg
--- OUTSIDE RECORDS SUMMARY | 2021-03-02 20:47 | CCD | Continuity of Care Document ---
Author Author Ahsan MCCLELLAND MD Organization Unknown Address [address] [place] [address] Phone [phone] Care Team Providers Care Chassis Wirer Name Role Phone Katerine Valencia [phone] Problems Active Problems Provider Date Essential hypertension Melquiades Mcclelland MD Onset: 01/19/2021 Pure hypercholesterolemia Melquiades Mcclelland MD Onset: 021 Social History Type Date Description Comments Sex Unknown ETOH Use Rarely consumes alcohol Tobacco Use Start: Unknown Denies Smoking Smoking Status Reviewed: 01/19/21 Denies Smoking Allergies, Adverse Reactions, Alerts Description No Known Drug Allergies Medications Description No Active Medications Immunizations Description No Information Available Vital Signs Description No Information Available Results Description No Information Available Procedures Date Code Description Status 01/18/2021 69148 Office/Outpatient New Moderate M DM 45-59 Minutes Completed 01/18/2021 68516 Inject Tendon Sheath, Ligament C ompleted 01/18/2021 60604 Inject Tendon Sheath, Ligament C ompleted Medical Devices Description No Information Available Encounters Type Date Location Provider Dx Diagnosis Office Visit 01/18/2021 3:15p [place] Melquiades Mcclelland MD M65.4 Radial styloid tenosynovitis [de Quervain] Assessments Date Code Description Provider 01/18/2021 M65.4 Radial styloid tenosynovitis [de Quervain] Melquiades Mcclelland MD Plan of Treatment 01/18/2021 - Melquiades Mcclelland MD* M65.4 Radial styloid tenosynovitis [de Quervain]* Follow up:* f/u in 8-10 weeks roberto carlos wrist recheck Functional Status Description No Information Available Mental Status Description No Information Available Referrals Refer to Reason for Referral Status Appt Date Melquiades Mcclelland MD O/V Created [address] [facility], [address] [place], [place] [id number] [phone] Melquiades Mcclelland MD [id number] PAIN IN RT HAND [id number] PAIN IN LT HAND Created [address] [facility], [address] [id number] [phone]
--- OUTSIDE RECORDS SUMMARY | 2021-03-02 20:47 | CCD | Continuity of Care Document ---
Author Author Ahsna MCCLELLAND MD Organization Unknown Address [address] [place] [address] Phone [phone] Care Team Providers Care Learning Developer Name Role Phone Katerine Valencia [phone] Problems Description No Information Available Social History Type Date Description Comments Sex Unknown Allergies, Adverse Reactions, Alerts Description No Information Available Medications Description No Information Available Immunizations Description No Information Available Vital Signs Description No Information Available Results Description No Information Available Procedures Date Code Description Status 01/18/2021 19232 Office/Outpatient [facility] 30 -44 Minutes Completed 01/18/2021 15876 Inject Tendon Sheath, Ligament C ompleted Medical Devices Description No Information Available Encounters Type Date Location Provider Dx Diagnosis Office Visit 01/18/2021 3:15p [place] Melquiades Mcclelland MD M65.4 Radial styloid tenosynovitis [...] Appt Date Melquiades Mcclelland MD O/V Created [address] [place] [phone] Melquiades Mcclelland MD [id number] PAIN IN RT HAND [id number] PAIN IN LT HAND Created [address] [facility], [address] [place] [id number] [phone]
--- OUTSIDE RECORDS SUMMARY | 2021-03-02 20:47 | CCD ---
Author Author [facility] Organization [facility] Address Unknown Phone Unavailable Care Team Providers Care Inspector And Hand Packager Name Role Phone Bret WOODSON MD Unavailable Unavailable Bret WOODSON MD Unavailable Unavailable Bret WOODSON MD Unavailable Unavailable Bret WOODSON MD Unavailable Unavailable Bret WOODSON MD Unavailable Unavailable Bret WOODSON MD Unavailable Unavailable Bret WOODSON MD Unavailable Unavailable Bret WOODSON MD Unavailable Unavailable Bret WOODSON MD Unavailable Unavailable Bret WOODSON MD Unavailable Unavailable Bret WOODSON MD Unavailable Unavailable Bret WOODSON MD Unavailable Unavailable Bret WOODSON MD Unavailable Unavailable Bret WOODSON MD Unavailable Unavailable Bret WOODSON MD Unavailable Unavailable Bret WOODSON MD Unavailable Unavailable Bret WOODSON MD Unavailable Unavailable Bret WOODSON MD Unavailable Unavailable Bret WOODSON MD Unavailable Unavailable Bret WOODSON MD Unavailable Unavailable Bret WOODSON MD Unavailable Unavailable Bret WOODSON MD Unavailable Unavailable Bret WOODSON MD Unavailable Unavailable Bret WOODSON MD Unavailable Unavailable Bret WOODSON MD Unavailable Unavailable Bret WOODSON MD Unavailable Unavailable Bret WOODSON MD Unavailable Unavailable Bret WOODSON MD Unavailable Unavailable Bret WOODSON MD Unavailable Unavailable Bret WOODSON MD Unavailable Unavailable Bret WOODSON MD Unavailable Unavailable Bret WOODSON MD Unavailable Unavailable Bret WOODSON MD Unavailable Unavailable Bret WOODSON MD Unavailable Unavailable Bret WOODSON MD Unavailable Unavailable KANDICE, Bret FREEMAN MD Unavailable Unavailable KANDICE, Bret FREEMAN MD Unavailable Unavailable KANDICE, Bret FREEMAN MD Unavailable Unavailable KANDICE, Bret FREEMAN MD Unavailable Unavailable KANDICE, Bret FREEMAN MD Unavailable Unavailable Mandappa, Vangie CASAC Unavailable Unavailable Mandappa, Vangie CASAC Unavailable Unavailable Mandappa, Vangie CASAC Unavailable Unavailable Mandappa, Vangie CASAC Unavailable Unavailable VINAY, B LAVERNE RAILROAD CRANE OPERATOR Unavailable Unavailable VINAY, B LAVERNE RAILROAD CRANE OPERATOR Unavailable Unavailable VINAY, B LAVERNE RAILROAD CRANE OPERATOR Unavailable Unavailable VINAY, B LAVERNE RAILROAD CRANE OPERATOR Unavailable Unavailable VINAY, B LAVERNE RAILROAD CRANE OPERATOR Unavailable Unavailable VINAY, B LAVERNE RAILROAD CRANE OPERATOR Unavailable Unavailable VINAY, B LAVERNE RAILROAD CRANE OPERATOR Unavailable Unavailable VINAY, B LAVERNE RAILROAD CRANE OPERATOR Unavailable Unavailable VINAY, B LAVERNE RAILROAD CRANE OPERATOR Unavailable Unavailable VINAY, B LAVERNE RAILROAD CRANE OPERATOR Unavailable Unavailable VINAY, B LAVERNE RAILROAD CRANE OPERATOR Unavailable Unavailable VINAY, B LAVERNE RAILROAD CRANE OPERATOR Unavailable Unavailable VINAY, B LAVERNE RAILROAD CRANE OPERATOR Unavailable Unavailable VINAY, B LAVERNE RAILROAD CRANE OPERATOR Unavailable Unavailable VINAY, B LAVERNE RAILROAD CRANE OPERATOR Unavailable Unavailable VINAY, B LAVERNE RAILROAD CRANE OPERATOR Unavailable Unavailable VINAY, B LAVERNE RAILROAD CRANE OPERATOR Unavailable Unavailable VINAY, B LAVERNE RAILROAD CRANE OPERATOR Unavailable Unavailable VINAY, B LAVERNE RAILROAD CRANE OPERATOR Unavailable Unavailable VINAY, B LAVERNE RAILROAD CRANE OPERATOR Unavailable Unavailable VINAY, B LAVERNE RAILROAD CRANE OPERATOR Unavailable Unavailable VINAY, B LAVERNE RAILROAD CRANE OPERATOR Unavailable Unavailable VINAY, B LAVERNE RAILROAD CRANE OPERATOR Unavailable Unavailable VINAY, B LAVERNE RAILROAD CRANE OPERATOR Unavailable Unavailable VINAY, B LAVERNE RAILROAD CRANE OPERATOR Unavailable Unavailable VINAY, B LAVERNE RAILROAD CRANE OPERATOR Unavailable Unavailable VINAY, B LAVERNE RAILROAD CRANE OPERATOR Unavailable Unavailable VINAY, B LAVERNE RAILROAD CRANE OPERATOR Unavailable Unavailable VINAY, B LAVERNE RAILROAD CRANE OPERATOR Unavailable Unavailable VINAY, B LAVERNE RAILROAD CRANE OPERATOR Unavailable Unavailable VINAY, B LAVERNE RAILROAD CRANE OPERATOR Unavailable Unavailable VINAY, B LAVERNE RAILROAD CRANE OPERATOR Unavailable Unavailable VINAY, B LAVERNE RAILROAD CRANE OPERATOR Unavailable Unavailable VINAY, B LAVERNE RAILROAD CRANE OPERATOR Unavailable Unavailable VINAY, B LAVERNE RAILROAD CRANE OPERATOR Unavailable Unavailable VINAY, B LAVERNE RAILROAD CRANE OPERATOR Unavailable Unavailable VINAY, B LAVERNE RAILROAD CRANE OPERATOR Unavailable Unavailable VINAY, B LAVERNE RAILROAD CRANE OPERATOR Unavailable Unavailable VINAY, B LAVERNE RAILROAD CRANE OPERATOR Unavailable Unavailable VINAY, B LAVERNE RAILROAD CRANE OPERATOR Unavailable Unavailable VINAY, B LAVERNE RAILROAD CRANE OPERATOR Unavailable Unavailable VINAY, B LAVERNE RAILROAD CRANE OPERATOR Unavailable Unavailable VINAY, B LAVERNE RAILROAD CRANE OPERATOR Unavailable Unavailable VINAY, B LAVERNE RAILROAD CRANE OPERATOR Unavailable Unavailable VINAY, B LAVERNE RAILROAD CRANE OPERATOR Unavailable Unavailable VINAY, B LAVERNE RAILROAD CRANE OPERATOR Unavailable Unavailable VINAY, B LAVERNE RAILROAD CRANE OPERATOR Unavailable Unavailable VINAY, B LAVERNE RAILROAD CRANE OPERATOR Unavailable Unavailable VINAY, B LAVERNE RAILROAD CRANE OPERATOR Unavailable Unavailable VINAY, B LAVERNE RAILROAD CRANE OPERATOR Unavailable Unavailable VINAY, B LAVERNE RAILROAD CRANE OPERATOR Unavailable Unavailable VINAY, B LAVERNE RAILROAD CRANE OPERATOR Unavailable Unavailable VINAY, B LAVRENE RAILROAD CRANE OPERATOR Unavailable Unavailable VINAY, B LAVERNE RAILROAD CRANE OPERATOR Unavailable Unavailable VINAY, B LAVERNE RAILROAD CRANE OPERATOR Unavailable Unavailable VINAY, B LAVERNE RAILROAD CRANE OPERATOR Unavailable Unavailable VINAY, B LAVERNE RAILROAD CRANE OPERATOR Unavailable Unavailable VINAY, B LAVERNE RAILROAD CRANE OPERATOR Unavailable Unavailable VINAY, B LAVERNE RAILROAD CRANE OPERATOR Unavailable Unavailable VINAY, B LAVERNE RAILROAD CRANE OPERATOR Unavailable Unavailable VINAY, B LAVERNE RAILROAD CRANE OPERATOR Unavailable Unavailable VINAY, B LAVERNE RAILROAD CRANE OPERATOR Unavailable Unavailable Butler, Rafa Arnett MD Unavailable Unavailable Butler, Rafa Arnett MD Unavailable Unavailable Butler, Rafa Arnett MD Unavailable Unavailable Butler, Rafa Arnett MD Unavailable Unavailable Butler, Rafa Arnett MD Unavailable Unavailable Butler, Rafa Arnett MD Unavailable Unavailable Butler, Rafa Arnett MD Unavailable Unavailable Butler, Rafa Arnett MD Unavailable Unavailable Butler, Rafa Arnett MD Unavailable Unavailable Butler, Rafa Arnett MD Unavailable Unavailable Butler, Rafa Arnett MD Unavailable Unavailable Butler, Rafa Arnett MD Unavailable Unavailable Butler, Rafa Arnett MD Unavailable Unavailable Butler, Rafa Arnett MD Unavailable Unavailable Butler, Rafa Arnett MD Unavailable Unavailable Butler, Rafa Arnett MD Unavailable Unavailable Butler, Rafa Arnett MD Unavailable Unavailable Butler, Rafa Arnett MD Unavailable Unavailable Butler, Rafa Arnett MD Unavailable Unavailable Butler, Rafa Arnett MD Unavailable Unavailable Butler, Rafa Arnett MD Unavailable Unavailable ButlerRafa MD Unavailable Unavailable ButlerRafa MD Unavailable Unavailable Butler, Rafa Arnett MD Unavailable Unavailable Butler, Rafa Arnett MD Unavailable Unavailable Butler, Rafa Arnett MD Unavailable Unavailable Butler, Rafa Arnett MD Unavailable Unavailable Butler, Rafa Arnett MD Unavailable Unavailable Butler, Rafa Arnett MD Unavailable Unavailable Butler, Rafa Arnett MD Unavailable Unavailable Butler, Rafa Arnett MD Unavailable Unavailable Butler, Rafa Arnett MD Unavailable Unavailable Butler, Rafa Arnett MD Unavailable Unavailable Butler, Rafa Arnett MD Unavailable Unavailable Butler, Rafa Arnett MD Unavailable Unavailable Butler, Rafa Arnett MD Unavailable Unavailable Butler, Rafa Arnett MD Unavailable Unavailable Butler, L Melquiades MD Unavailable Unavailable ButlerRafa brown MD Unavailable Unavailable ButlerRafa MD Unavailable Unavailable ButlerRafa brown MD Unavailable Unavailable ButlerRafa MD Unavailable Unavailable ButlerRafa MD Unavailable Unavailable ButlerRafa MD Unavailable Unavailable ButlerRafa MD Unavailable Unavailable ButlerRafa brown MD Unavailable Unavailable ButlerRafa MD Unavailable Unavailable ButlerRafa MD Unavailable Unavailable ButlerRafa MD Unavailable Unavailable Butler L Melquiades FLORENTINO Unavailable Unavailable Tin, Magaly Fidelia (Luis E) MD Unavailable Unavailable Tin, Magaly Fidelia (Luis E) MD Unavailable Unavailable Tin, Magaly Fidelia (Luis E) MD Unavailable Unavailable Tin, Magaly Fidelia (Luis E) MD Unavailable Unavailable Tin, Magaly Fidelia (Luis E) MD Unavailable Unavailable Tin, Magaly Fidelia (Luis E) MD Unavailable Unavailable Tin, Magaly Fidelia (Luis E) MD Unavailable Unavailable Tin, Magaly Fidelia (Luis E) MD Unavailable Unavailable Tin, Magaly Fidelia (Luis E) MD Unavailable Unavailable Tin, Magaly Fidelia (Luis E) MD Unavailable Unavailable Tin, Magaly Fidelia (Luis E) MD Unavailable Unavailable Tin, Magaly Fidelia (Luis E) MD Unavailable Unavailable Tin, Magaly Fidelia (Luis E) MD Unavailable Unavailable Tin, Magaly Fidelia (Luis E) MD Unavailable Unavailable Tin, Magaly Fidelia (Luis E) MD Unavailable Unavailable Tin, Magaly Fidelia (Luis E) MD Unavailable Unavailable Tin, Magaly Fidelia (Luis E) MD Unavailable Unavailable Tin, Magaly Fidelia (Luis E) MD Unavailable Unavailable Tin, Magaly Fidelia (Luis E) MD Unavailable Unavailable Tin, Magaly Fidelia (Luis E) MD Unavailable Unavailable Tin, Magaly Fidelia (Luis E) MD Unavailable Unavailable Tin, Magaly Fidelia (Luis E) MD Unavailable Unavailable Tin, Magaly Fidelia (Luis E) MD Unavailable Unavailable Tin, Magaly Fidelia (Luis E) MD Unavailable Unavailable Tin, Magaly Fidelia (Luis E) MD Unavailable Unavailable Tin, Magaly Fidelia (Luis E) MD Unavailable Unavailable Tin, Magaly Fidelia (Luis E) MD Unavailable Unavailable Tin, Magaly Fidelia (Luis E) MD Unavailable Unavailable Tin, Magaly Fidelia (Luis E) MD Unavailable Unavailable Tin, Magaly Fidelia (Luis E) MD Unavailable Unavailable Tin, Magaly Fidelia (Luis E) MD Unavailable Unavailable Tin, Magaly Fidelia (Lusi E) MD Unavailable Unavailable Tin, Magaly Fidelia (Luis E) MD Unavailable Unavailable Tin, Magaly Fidelia (Luis E) MD Unavailable Unavailable Tin, Magaly Fidelia (Luis E) MD Unavailable Unavailable Tin, Magaly Fidelia (Luis E) MD Unavailable Unavailable Tin, Magaly Fiedlia (Luis E) MD Unavailable Unavailable Tin, Magaly Fidelia (Luis E) MD Unavailable Unavailable Tin, Magaly Fidelia (Luis E) MD Unavailable Unavailable Tin, Magaly Fidelia (Luis E) MD Unavailable Unavailable Tin, Magaly Fidelia (Luis E) MD Unavailable Unavailable Tin, Magaly Fidelia (Luis E) MD Unavailable Unavailable Tin, Magaly Fidelia (Luis E) MD Unavailable Unavailable Tin, Magaly Fidelia (Luis E) MD Unavailable Unavailable Tin, Magaly Fidelia (Luis E) MD Unavailable Unavailable Tin, Magaly Fidelia (Luis E) MD Unavailable Unavailable Tin, Magaly Fidelia (Luis E) MD Unavailable Unavailable Tin, Magaly Fidelia (Luis E) MD Unavailable Unavailable Tin, Magaly Fidelia (Luis E) MD Unavailable Unavailable Tin, Magaly Fidelia (Luis E) MD Unavailable Unavailable Tin, Magaly Fidelia (Luis E) MD Unavailable Unavailable Tin, Magaly Fidelia (Luis E) MD Unavailable Unavailable Tin, Magaly Fidelia (Luis E) MD Unavailable Unavailable Tin, Magaly Fidelia (Luis E) MD Unavailable Unavailable Tin, Magaly Fidelia (Luis E) MD Unavailable Unavailable Tin, Magaly Fidelia (Luis E) MD Unavailable Unavailable Tin, Magaly Fidelia (Luis E) MD Unavailable Unavailable Tin, Magaly Fidelia (Luis E) MD Unavailable Unavailable Re-disclosure Warning The records that you are about to access may contain information from federally-assisted alcohol or drug abuse programs. If such information is present, then the following federally mandated warning applies: This information has been disclosed to you from records protected by federal confidentiality rules (42 CFR part 2). The federal rules prohibit you from making any further disclosure of this information unless further disclosure is expressly permitted by the written consent of the person to whom it pertains or as otherwise permitted by 42 CFR part 2. A general authorization for the release of medical or other information is NOT sufficient for this purpose. The Federal rules restrict any use of the information to criminally investigate or prosecute any alcohol or drug abuse patient.The records that you are about to access may contain highly sensitive health information, the redisclosure of which is protected by Article 27-F of the [place] State Public Health law. If you continue you may have access to information: Regarding HIV / AIDS; Provided by facilities licensed or operated by the [facility] Office of Mental Health; or Provided by the [facility] Office for People With Developmental Disabilities. If such information is present, then the following [facility] mandated warning applies: This information has been disclosed to you from confidential records which are protected by state law. State law prohibits you from making any further disclosure of this information without the specific written consent of the person to whom it pertains, or as otherwise permitted by law. Any unauthorized further disclosure in violation of state law may result in a fine or halfway sentence or both. A general authorization for the release of medical or other information is NOT sufficient authorization for further disc losure. Encounters Encounter Providers Location Date Indications Data Source(s ) Outpatient Attender: Melquiades Butler MD Physical Therapy 01/18/2021 0 3:15:00 PM EDT [facility] ([facility]) Recurring Patient Referrer: Vangie PATHAK 10/19/2020 12:40:47 PM EDT [facility] Recurring Patient Referrer: Vangie PATHAK 10/19/2020 12:35:42 PM EDT [facility] Outpatient Attender: LAVERNE MCLEAN NP Physical Therapy 01:30:00 PM EST [facility] ([facility]) Outpatient Attender: LYDIA WOODSON MD 2019 12:53:00 PM EDT - 03/08/2020 01:53:00 PM EDT [facility] Patient discharged. Outpatient Attender: LAVERNE MCLEAN NP Physical Therapy 02:45:00 PM EDT [facility] ([facility]) Outpatient Referrer: Magaly Mir MD (Jack) 02/16/2020 01: 13:33 PM EDT [facility] Immunizations Vaccine Date Status Description Data Source(s) COVID-19 VACCINE Pfizer 09/29/2020 12:00:00 AM EDT completed [facility] Vaccine Series Complete: NOThis Data was Submitted to [facility] Via [facility]. Medications Medication Brand Name Start Date Product Form Dose Route Admi nistrative Instructions Pharmacy Instructions Status Indications Reaction Description Data Source(s) Levothyroxine Sodium 0.125 MG Oral Tablet [Synthroid] Synthr oid 11/04/2019 12:00:00 AM EDT ORAL completed [facility] ([facility] ) Insurance Providers Payer name Policy type / Coverage type Policy ID Covered democrat ID Covered democrat's relationship to darling Policy Darling Plan Information [employer] [id number] [facility] Humana F [id number] SPOUSE [id number] [place] [id number] S [id number] [facility] HUMANA - O/P [id number] 01 [id number] Human [id number] NO FAULT [id number] SP [id number] [employer] INS[employer]ENCE [id number] 18 [id number] [employer] [place] O UNAVAILABLE [id number] P UNAVAILABLE Problems, Conditions, and Diagnoses Code Display Name Description Problem Type Effective Dates Data Source(s) R109 Unspecified abdominal pain Unspecified abdominal pain Diagnosis 03/08/2020 12:53:00 PM EDT [facility] [id number] Pure hypercholesterolemia Pure hypercholesterolemia Pr oblem 01/19/2021 12:00:00 AM EDT [facility] ([facility] ) [id number] Essential hypertension Essential hypertension Problem 01/19/2021 12:00:00 AM EDT [facility] ([facility]) Surgeries/Procedures Procedure Description Date Indications Data Source(s) INJECTION 1 TENDON SHEATH/LIGAMENT APONEUROSIS 021 12:00:00 AM EDT [facility] ([facility] INJECTION 1 TENDON SHEATH/LIGAMENT APONEUROSIS 021 12:00:00 AM EDT [facility] ([facility] ) OFFICE OUTPATIENT NEW 45 MINUTES 01/18/2021 12:00:00 A M EDT [facility] ([facility] OFFICE OUTPATIENT NEW 30 MINUTES 01/18/2021 12:00:00 A M EDT [facility] ([facility] ) Diabetic Foot Exam 03/02/2020 12:00:00 AM EDT [facility] ([facility] ) Results ID Date Data Source [id number] 06/02/2020 02:45:00 PM EST [facility] ([facility] ) Name Value Range Interpretation Code Description Data Mady rce(s) Supporting Document(s) Microalbumin [Mass/volume] in Urine 13.0 mg/L [facility] ([facility] Creatinine [Mass/volume] in Urine 187.0 mg/dL [facility] ([facility] Microalbumin/Creatinine [Mass Ratio] in Urine 6.9 MCG/MG 0.0-30.0 [facility] ([facility] ) THE [employer] STATES THAT MICROALBUMINURIA IS PRESENT IF THE MICROALBUMIN/CREATININE RATIO EXCEEDS 30 MCG/MG. THE THRESHOLD FOR CLINICAL ALBUMINURIA IS REACHED AT 300 MCG/MG. THE CLASSIFICATION OF A PATIENT SHOULD BE BASED UPON AT LEAST 2 OF 3 ABNORMAL RESULTS ON SPECIMENS COLLECTED WITHIN A 3 TO 6 MONTH TIME FRAME. ID Date Data Source [id number] 03/09/2020 08:46:00 AM EDT [facility] [address] [place] [address] PHONE: [phone] FAX: [phone] Name .................. : NANCY JOE Acct Number.................. : [id number] ROOM. ................. : MR Number ................... : [id number] Stay type ............. : O/P Discharge Date......... ... : 03/08/20 Admit Date ....... .. : 03/08/20 Admit Phys .................... : KANDICE INDIRA Date of ....... : 1975 Family Phys ................... : UNKNOWN Phone .................. : [phone] Age ................................ : 45 Film# .................. .:[id number] Sex ................................. : F Unsigned transcriptions are preliminary reports and do not represent a medical or legal document MRI ABDOMEN W&W/O CONTRAST [id number] COMPLETE:03/08/20 14:52 [facility] [id number] (REASON FOR ABDOMEN: LESIONS ON LIVER MRI OF THE ABDOMEN WITH AND WITHOUT CONTRAST: INDICATION: Liver lesions. TECHNIQUE: A total of 5 mL of Eovist was utilized for the contrast imaging. FINDINGS: The liver protocol was otherwise utilized using 5 mL of Eovist. No liver lesion is identified. There is no abnormal enhancement of the liver. No intrahepatic ductal dilatation. The gallbladder is unremarkable. The pancreas is within nor mal limits. The spleen is homogeneous. The bilateral adrenal glands are normal in size. The kidneys are unremarkable. No ascites. IMPRESSION: No liver lesion is identified. No intrahepatic ductal dilatation. Recommend comparison with prior outside CT. Electronically Reviewed and Signed By Olkesandr Bruno MD , 03/09/20 08:46, PAMELA Transcribe Initials: TANK , Transcribe Date: 03/08/20 23:51, Dictation Date: Copy for: KANDICE uQeen via fax Copy for: [address] [place] [address] Page 1 of 1 Name Value Range Interpretation Code Description Data Mady rce(s) Supporting Document(s) ID Date Data Source [id number] 02/16/2020 12:00:00 AM EDT [facility] Lydia Woodson MD Patient Name: Adela CRUZ [id number] Date of : 1975 [address] Date of Exam: 02/16/2020PEDRO Hartmann [id number]#: fax: [phone] EXAM: MAMMO SCREENING WITH CADCLINICAL INFORMATION: Screening.Based on the personal and family history information your patient suppliedat the time of imaging, her lifetime risk of breast cancer estimated by theTyrer-Cuzick model is 6.3%. Given that this patient has less than 20% TCrisk score, no further medical management is currently recommended at thistime.Digital screening (2D only) mammography was performed bilaterally in the CCand MLO projections. Today's exam was compared to the prior exam(s).By history, the patient has no complaints of a palpable breast abnormalityor other significant breast complaints.The patient states she does not remember when her last clinical breast examwas.The breasts are unchanged in size and shape. Once again, denseheterogeneous fibroglandular elements are seen bilaterally in a stableappearing pattern but to such a degree that the sensitivity of themammogram in detecting cancer is decreased. There are no horace-soft tissuedensities or spiculated masses. There is no internal architecturaldistortion. There are no suspicious horace-calcific clusters. Skinthickening or nipple retraction is not present. Benign calcifications areagain noted.The Volpara volumetric breast density category is C, the breasts areheterogeneously dense which may obscure small masses.IMPRESSION:BI-RADS Category 2 - Benign Finding(s). Stable mammogram. There is noevidence of malignant alteration of the breasts. Followup examinationrecommended in one year.This mammogram was read with the assistance of Night Up, an FDAapproved computer aided detection system for mammography.Negative x-ray reports should not delay surgical consultation if a dominantor clinically suspicious mass is present.Not all breast cancers can be identified by mammography. Therefore, werecommend that you continue to perform regular breast self-examination andphysical examination and then promptly contact your physician of anyconcerns or changes.Adenosis and dense breasts may obscure an underlying neoplasm.HAYDEE Wilson/jmcThank you for referring TATYANA CRUZ to our office. Electronically Signed - JEAN MARIE JULIO DO 02/17/20 16:11 Name Value Range Interpretation Code Description Data Mady rce(s) Supporting Document(s) Procedure Social History Code Duration Value Status Description Data Source(s ) Smoking 06/02/2020 12:00:00 AM EST Patient is a former smoker completed Patient is a former smoker [facility] ([facility]) Vital Signs ID Date Data Source UNK Name Value Range Interpretation Code Description Data Source(s) Diastolic blood pressure 82 mm[Hg] 82 mm[Hg] [facility] ([facility]) Systolic blood pressure 120 mm[Hg] 120 mm[Hg] M [facility] ([facility]) Heart rate 92 /min 92 /min [facility] ([facility]) Body temperature 97.0 [degF] 97.0 [degF] [facility]) Body height 59.2 [in_i] 59.2 [in_i] [facility] ([facility]) 4'.20" Oxygen saturation in Arterial blood by Pulse oximetry 99 % 99 % [facility] ([facility]) Body weight 118.00 [lb_av] 118.00 [lb_av] [facility] T ([facility]) Body mass index (BMI) [Ratio] 23.7 kg/m2 23.7 k g/m2 [facility] ([facility]) Heart rate 76 /min 76 /min [facility] ([facility] Systolic blood pressure 120 mm[Hg] 120 mm[Hg] M [facility] ([facility] Diastolic blood pressure 80 mm[Hg] 80 mm[Hg] [facility] ([facility]) Body height 59.2 [in_i] 59.2 [in_i] [facility] 4'11.20" Body temperature 97.5 [degF] 97.5 [degF] [facility] ([facility] Body weight 118.25 [lb_av] 118.25 [lb_av] [facility] T ([facility] Body mass index (BMI) [Ratio] 23.7 kg/m2 23.7 k g/m2 [facility] ([facility])
--- OUTSIDE RECORDS SUMMARY | 2021-03-02 23:20 | CCD ---
Author Author [facility] Organization [facility] Address Unknown Phone Unavailable Care Team Providers Care Olive Grower Name Role Phone Bret WOODSON MD Unavailable [...] Unavailable Bret WOODSON MD Unavailable Unavailable Bret WOOSDON MD Unavailable Unavailable Bret WOODSON MD Unavailable [...] Vangie CASAC Unavailable Unavailable VINAY, B LAVERNE COMPUTER AIDE Unavailable Unavailable VINAY, B LAVERNE COMPUTER AIDE Unavailable Unavailable VINAY, B LAVERNE COMPUTER AIDE Unavailable Unavailable VINAY, B LAVERNE COMPUTER AIDE Unavailable Unavailable VINAY, B LAVERNE COMPUTER AIDE Unavailable Unavailable VINAY, B LAVERNE COMPUTER AIDE Unavailable Unavailable VINAY, B LAVERNE COMPUTER AIDE Unavailable Unavailable VINAY, B LAVERNE COMPUTER AIDE Unavailable Unavailable VINAY, B LAVERNE COMPUTER AIDE Unavailable Unavailable VINAY, B LAVERNE COMPUTER AIDE Unavailable Unavailable VINAY, B LAVERNE COMPUTER AIDE Unavailable Unavailable VINAY, B LAVERNE COMPUTER AIDE Unavailable Unavailable VINAY, B LAVERNE COMPUTER AIDE Unavailable Unavailable VINAY, B LAVERNE COMPUTER AIDE Unavailable Unavailable VINAY, B LAVERNE COMPUTER AIDE Unavailable Unavailable VINAY, B LAVERNE COMPUTER AIDE Unavailable Unavailable VINAY, B LAVERNE COMPUTER AIDE Unavailable Unavailable VINAY, B LAVERNE COMPUTER AIDE Unavailable Unavailable VINAY, B LAVERNE COMPUTER AIDE Unavailable Unavailable VINAY, B LAVERNE COMPUTER AIDE Unavailable Unavailable VINAY, B LAVERNE COMPUTER AIDE Unavailable Unavailable VINAY, B LAVERNE COMPUTER AIDE Unavailable Unavailable VINAY, B LAVERNE COMPUTER AIDE Unavailable Unavailable VINAY, B LAVERNE COMPUTER AIDE Unavailable Unavailable VINAY, B LAVERNE COMPUTER AIDE Unavailable Unavailable VINAY, B LAVERNE COMPUTER AIDE Unavailable Unavailable VINAY, B LAVERNE COMPUTER AIDE Unavailable Unavailable VINAY, B LAVERNE COMPUTER AIDE Unavailable Unavailable VINAY, B LAVERNE COMPUTER AIDE Unavailable Unavailable VINAY, B LAVERNE COMPUTER AIDE Unavailable Unavailable VINAY, B LAVERNE COMPUTER AIDE Unavailable Unavailable VINAY, B LAVERNE COMPUTER AIDE Unavailable Unavailable VINAY, B LAVERNE COMPUTER AIDE Unavailable Unavailable VINAY, B LAVERNE COMPUTER AIDE Unavailable Unavailable VINAY, B LAVERNE COMPUTER AIDE Unavailable Unavailable VINAY, B LAVERNE COMPUTER AIDE Unavailable Unavailable VINAY, B LAVERNE COMPUTER AIDE Unavailable Unavailable VINAY, B LAVERNE COMPUTER AIDE Unavailable Unavailable VINAY, B LAVERNE COMPUTER AIDE Unavailable Unavailable VINAY, B LAVERNE COMPUTER AIDE Unavailable Unavailable VINAY, B LAVERNE COMPUTER AIDE Unavailable Unavailable VINAY, B LAVERNE COMPUTER AIDE Unavailable Unavailable VINAY, B LAVERNE COMPUTER AIDE Unavailable Unavailable VINAY, B LAVERNE COMPUTER AIDE Unavailable Unavailable VINAY, B LAVERNE COMPUTER AIDE Unavailable Unavailable VINAY, B LAVERNE COMPUTER AIDE Unavailable Unavailable VINAY, B LAVERNE COMPUTER AIDE Unavailable Unavailable VINAY, B LAVERNE COMPUTER AIDE Unavailable Unavailable VINAY, B LAVERNE COMPUTER AIDE Unavailable Unavailable VINAY, B LAVERNE COMPUTER AIDE Unavailable Unavailable VINAY, B LAVERNE COMPUTER AIDE Unavailable Unavailable VINAY, B LAVERNE COMPUTER AIDE Unavailable Unavailable VINAY, B LAVERNE COMPUTER AIDE Unavailable Unavailable VINAY, B LAVERNE COMPUTER AIDE Unavailable Unavailable VINAY, B LAVERNE COMPUTER AIDE Unavailable Unavailable VINAY, B LAVERNE COMPUTER AIDE Unavailable Unavailable VINAY, B LAVERNE COMPUTER AIDE Unavailable Unavailable VINAY, B LAVERNE COMPUTER AIDE Unavailable Unavailable VINAY, B LAVERNE COMPUTER AIDE Unavailable Unavailable VINAY, B LAVERNE COMPUTER AIDE Unavailable Unavailable VINAY, B LAVERNE COMPUTER AIDE Unavailable Unavailable VINAY, B LAVERNE COMPUTER AIDE Unavailable Unavailable Butler, Rafa Arnett MD Unavailable [...] (Luis E) MD Unavailable Unavailable Tin, Magaly Fidelai (Luis E) MD Unavailable Unavailable Tin, Magaly [...] Fidelia (Luis E) MD Unavailable Unavailable Tin, Mgaaly Fidelia (Luis E) MD Unavailable Unavailable Tin, [...] is protected by Article 27-F of the [place] Public Health law. If you continue you may have access to information: Regarding HIV / AIDS; Provided by facilities licensed or operated by the [facility] Office of Mental Health; or Provided by the [facility] Office for People With Developmental Disabilities. If such information is present, then the following [facility] mandated warning applies: This information has been [...] law may result in a fine or correction sentence or both. A general authorization for the release of medical or other information is NOT sufficient authorization for further disc losure. Encounters Encounter Providers Location Date Indications Data Source(s ) Outpatient Attender: Melquiades Butler MD Physical Therapy 01/18/2021 0 3:15:00 PM EDT [facility] ([facility]) Recurring Patient Referrer: Vangie PATHAK 10/19/2020 12:40:47 PM EDT [facility] Recurring Patient Referrer: Vangie PATHAK 10/19/2020 12:35:42 PM EDT [facility] Outpatient Attender: LAVERNE MCLEAN NP Physical Therapy 01:30:00 PM EST [facility] ([facility]) Outpatient Attender: LYDIA WOODSON MD 2019 12:53:00 PM EDT - 03/08/2020 01:53:00 PM EDT [facility] Patient discharged. Outpatient Attender: LAVERNE MCLEAN NP Physical Therapy 02:45:00 PM EDT [facility] ([facility]) Outpatient Referrer: Magaly Mir MD (Jack) 02/16/2020 01: 13:33 PM EDT [facility] Immunizations Vaccine Date Status Description Data Source(s) COVID-19 VACCINE Pfizer 09/29/2020 12:00:00 AM EDT completed [facility] Vaccine Series Complete: NOThis Data was Submitted to [facility] Via [employer]. Medications Medication Brand Name Start Date Product Form Dose Route Admi nistrative Instructions Pharmacy Instructions Status Indications Reaction Description Data Source(s) Levothyroxine Sodium 0.125 MG Oral Tablet [Synthroid] Synthr oid 11/04/2019 12:00:00 AM EDT ORAL completed [facility] ([facility] ) Insurance Providers Payer name Policy type / Coverage type Policy ID Covered green party ID Covered green party's relationship to darling Policy Darling Plan Information Rescale [id number] [facility] Humana F [id number] SPOUSE [id number] [place] [id number] S [id number] [facility] HUMANA - O/P [id number] 01 [id number] Human [id number] NO FAULT [id number] SP [id number] [employer] INSURENCE [id number] 18 [id number] [employer] [place] UNAVAILABLE [id number] P UNAVAILABLE Problems, Conditions, and Diagnoses Code Display Name Description Problem Type Effective Dates Data Source(s) R109 Unspecified abdominal pain Unspecified abdominal pain Diagnosis 03/08/2020 12:53:00 PM EDT [facility] [id number] Pure hypercholesterolemia Pure hypercholesterolemia Pr oblem 01/19/2021 12:00:00 AM EDT [facility] ([facility] [id number] Essential hypertension Essential hypertension Problem 01/19/2021 12:00:00 AM EDT [facility] ([facility]) Surgeries/Procedures Procedure Description Date Indications Data Source(s) INJECTION 1 TENDON SHEATH/LIGAMENT APONEUROSIS 021 12:00:00 AM EDT [facility] ([facility] INJECTION 1 TENDON SHEATH/LIGAMENT APONEUROSIS 021 12:00:00 AM EDT [facility] ([facility] ) OFFICE OUTPATIENT NEW 45 MINUTES 01/18/2021 12:00:00 A M EDT [facility] ([facility] ) OFFICE OUTPATIENT NEW 30 MINUTES 01/18/2021 12:00:00 A M EDT [facility] ([facility] ) Diabetic Foot Exam 03/02/2020 12:00:00 AM EDT [facility] ([facility] ) Results ID Date Data Source [id number] 06/02/2020 02:45:00 PM EST [facility] ([facility] ) Name Value Range Interpretation Code Description Data Mady rce(s) Supporting Document(s) Microalbumin [Mass/volume] in Urine 13.0 mg/L [facility] ([facility] Creatinine [Mass/volume] in Urine 187.0 mg/dL [facility] ([facility] ) Microalbumin/Creatinine [Mass Ratio] in Urine 6.9 MCG/MG 0.0-30.0 [facility] ([facility] ) THE [employer] STATES THAT MICROALBUMINURIA IS PRESENT IF THE MICROALBUMIN/CREATININE RATIO EXCEEDS 30 MCG/MG. THE THRESHOLD FOR CLINICAL ALBUMINURIA IS REACHED AT 300 MCG/MG. THE CLASSIFICATION OF A PATIENT SHOULD BE BASED UPON AT LEAST 2 OF 3 ABNORMAL RESULTS ON SPECIMENS COLLECTED WITHIN A 3 TO 6 MONTH TIME FRAME. ID Date Data Source [id number] 03/09/2020 08:46:00 AM EDT [facility] [address] [place] [address] PHONE: [phone] FAX: [phone] Name .................. : NANCY JOE Acct Number.................. : [id number] ROOM. ................. : MR Number ................... : [id number] Stay type ............. : O/P Discharge Date......... ... : 03/08/20 Admit Date ....... .. : 03/08/20 Admit Phys .................... : KANDICE INIDRA Date of ....... : 1975 Family Phys ................... : UNKNOWN Phone .................. : [phone] Age ................................ : 45 Film# .................. .:[id number] Sex ................................. : F Unsigned transcriptions are preliminary reports and do not represent a medical or legal document MRI ABDOMEN W&W/O CONTRAST [id number] COMPLETE:03/08/20 14:52 [facility] [id number] (REASON FOR ABDOMEN: LESIONS ON LIVER MRI [...] outside CT. Electronically Reviewed and Signed By Oleksandr Bruno MD , 03/09/20 08:46, PAMELA Transcribe Initials: TANK , Transcribe Date: 03/08/20 23:51, Dictation Date: Copy for: KANDICE Queen via fax Copy for: [address] [place] [address] Page 1 of 1 Name Value Range Interpretation Code Description Data Mady rce(s) Supporting Document(s) ID Date Data Source [id number] 02/16/2020 12:00:00 AM EDT [facility] Lydia Woodson MD Patient Name: Adela CRUZ [id number] Date of : 1975 [address] Date of Exam: 02/16/2020PEDRO Hartmann [id number]#: fax: [phone] EXAM: MAMMO SCREENING WITH CADCLINICAL [...] mammogram was read with the assistance of Lumiant, an FDAapproved computer aided detection system for [...] completed Patient is a former smoker [facility] ([facility]) Vital Signs ID Date Data Source UNK Name Value Range Interpretation Code Description Data Source(s) Systolic blood pressure 120 mm[Hg] 120 mm[Hg] M [facility] ([facility]) Diastolic blood pressure 82 mm[Hg] 82 mm[Hg] [facility] ([facility]) Heart rate 92 /min 92 /min [facility] ([facility]) Body temperature 97.0 [degF] 97.0 [degF] [facility] ([facility]) Body height 59.2 [in_i] 59.2 [in_i] [facility] ([facility]) 4'.20" Body weight 118.00 [lb_av] 118.00 [lb_av] [facility] T ([facility]) Body mass index (BMI) [Ratio] 23.7 kg/m2 23.7 k g/m2 [facility] ([facility]) Oxygen saturation in Arterial blood by Pulse oximetry 99 % 99 % [facility] ([facility]) Systolic blood pressure 120 mm[Hg] 120 mm[Hg] M [facility] ([facility]) Body height 59.2 [in_i] 59.2 [in_i] [facility] ([facility]) 4'11.20" Heart rate 76 /min 76 /min [facility] ([facility]) Body temperature 97.5 [degF] 97.5 [degF] [facility] ([facility]) Body weight 118.25 [lb_av] 118.25 [lb_av] [facility] T ([facility]) Diastolic blood pressure 80 mm[Hg] 80 mm[Hg] [facility] ([facility] Body mass index (BMI) [Ratio] 23.7 kg/m2 23.7 k g/m2 [facility] ([facility])
[2021-03-02] MEDS ORDERED: ACETAMINOPHEN 500 MG TAB PO ONE (23:50)
[2021-03-02] MEDS ORDERED: diphenhydrAMINE 50MG/ML VIAL (J1200) IV ONE (23:50)
[2021-03-02] MEDS ORDERED: METOCLOPRAMIDE INJ 10MG/2ML VIAL (J2765 PER 1) IV ONE (23:50)
[2021-03-03 00:50] LABS: RSV AMPLIFICATION NEGATIVE (NEGATIVE)
[2021-03-03 00:54] LABS: BASO % 0.3 % (0.0-1.0); EOS # 0.2 10^3/uL (0.0-0.5); EOS % 2.1 % (0.0-3.0); HEMATOCRIT 40.9 % (36.0-47.0); HEMOGLOBIN 13.3 g/dl (12.0-15.5); LYMPH # 4.2 10^3/uL (1.5-5.0); LYMPH % 36.2 % (24.0-44.0); MEAN CORPUSCULAR HEMOGLOBIN 28.4 pg (27.0-33.0); MEAN CORPUSCULAR HGB CONC 32.5 g/dl (32.0-36.5); MEAN CORPUSCULAR VOLUME 87.2 fl (80.0-96.0); MONO # 0.8 10^3/uL (0.0-0.8); MONO % 6.6 % (2.0-8.0); NEUTROPHILS # 6.3 10^3/uL (1.5-8.5); NEUTROPHILS % 54.4 % (36.0-66.0); PLATELET COUNT, AUTOMATED 291 10^3/uL (150-450); RED BLOOD COUNT 4.69 10^6/uL (4.00-5.40); WHITE BLOOD COUNT 11.6 10^3/uL (4.0-10.0)
[2021-03-03] MEDS ORDERED: CYCLOBENZAPRINE 5MG TABLET PO ONE (01:05)
[2021-03-03] MEDS ORDERED: LIDOCAINE 5% (LIDODERM) PATCH TD ONE (01:05)
[2021-03-03] MEDS ORDERED: NS 1,000 ML IV ONE (01:15)
[2021-03-03 01:21] LABS: ALBUMIN 3.5 GM/DL (3.2-5.2); ALT/SGPT 39 U/L (12-78); BILIRUBIN,DIRECT 0.1 MG/DL (0.0-0.2); BILIRUBIN,TOTAL 0.5 MG/DL (0.2-1.0); BLOOD UREA NITROGEN 12 MG/DL (7-18); CALCIUM LEVEL 8.5 MG/DL (8.5-10.1); CARBON DIOXIDE LEVEL 31 MEQ/L (21-32); CHLORIDE LEVEL 102 MEQ/L (98-107); CREATININE FOR GFR 0.75 MG/DL (0.55-1.30); GLOMERULAR FILTRATION RATE > 60.0 (>58); GLUCOSE, FASTING 251 MG/DL (70-100); POTASSIUM SERUM 4.3 MEQ/L (3.5-5.1); SODIUM LEVEL 138 MEQ/L (136-145); TOTAL PROTEIN 7.3 GM/DL (6.4-8.2)
[2021-03-03 01:35] LABS: CPK CREATINE PHOSPHOKINASE 48 U/L (26-192); MAGNESIUM LEVEL 1.7 MG/DL (1.8-2.4)
[2021-03-03 01:42] LABS: APPEARANCE, URINE CLEAR (CLEAR); BACTERIA, URINE AUTO NEGATIVE (NEGATIVE); BILIRUBIN, URINE AUTO NEGATIVE (NEGATIVE); BLOOD, URINE BLOOD NEGATIVE (NEGATIVE); COLOR, URINE STRAW (YELLOW); GLUCOSE, URINE (UA) AUTO 3+ mg/dL (NEGATIVE); KETONE, URINE AUTO NEGATIVE (NEGATIVE); LEUKOCYTE ESTERASE, URINE AUTO NEGATIVE (NEGATIVE); NITRITE, URINE AUTO NEGATIVE (NEGATIVE); PROTEIN, URINE AUTO NEGATIVE (NEGATIVE); RBC, URINE AUTO 0 /HPF (0-3); SPECIFIC GRAVITY URINE AUTO 1.016 (1.002-1.035); SQUAMOUS EPITHELIAL CELL UR AU 0 /HPF (0-6); UROBILINOGEN, URINE AUTO 0.2 mg/dL (0.0-2.0); WBC, URINE AUTO 0 /HPF (0-3)
[2021-03-03] MEDS ORDERED: LIDO5DIS41 TOP (02:13)
--- NOTE | 2021-03-03 02:34 | REPVR ---
PROCEDURE INFORMATION: Exam: US Duplex Right Upper Extremity Veins, Limited Exam date and time: 03/03/2021 1:25 AM Age: 46 years old Clinical indication: Pain; Arm, upper; Right; Additional info: R/O dvt rue TECHNIQUE: Imaging protocol: Real-time Duplex ultrasound of the Right Upper Extremity with 2-D barber scale, color Doppler flow and spectral waveform analysis with image documentation. Limited exam focused on the right upper extremity veins. COMPARISON: CR Clavicle 10/28/2018 2:55 PM FINDINGS: Right deep veins: Axillary and brachial veins are patent throughout without thrombus. Normal Doppler waveforms. Normal compressibility and/or augmentation response. Visualized internal jugular and subclavian veins are patent. Right superficial veins: Visualized cephalic and basilic veins are patent without thrombus. Soft tissues: Unremarkable. IMPRESSION: No evidence of deep vein thrombosis of the right upper extremity. Electronically signed by: Rylan Cardona On 03/03/2021 02:34:20 AM
[2021-03-03 02:53] LABS: HEMOGLOBIN A1c 10.1 %
[2021-03-03 03:54] LABS: FREE T4 1.12 NG/DL (0.76-1.46)
[2021-03-03 04:18] VITALS: BP 121/76
[2021-03-03 13:05] LABS: VITAMIN B12 LEVEL 565 PG/ML (247-911)
[2021-03-03] MEDS ORDERED: **NOTE PATIENT COMMENT** MISC XX ONE (13:05)
== END 2021-03-03 04:19 | disposition home or self-care (01) ==
LOC: M ED 20:37
DX: G43.909 Migraine, unspecified, not intractable, without status migrainosus (principal); M79.621 Pain in right upper arm; M79.7 Fibromyalgia; E11.65 Type 2 diabetes mellitus with hyperglycemia; M62.838 Other muscle spasm; I10 Essential (primary) hypertension; E03.9 Hypothyroidism, unspecified; E78.5 Hyperlipidemia, unspecified; A69.20 Lyme disease, unspecified; M50.20 Other cervical disc displacement, unspecified cervical region; M51.26 Other intervertebral disc displacement, lumbar region; Z79.899 Other long term (current) drug therapy
CPT/HCPCS: 80048; 80076; 81001; 82550; 82607; 83036; 83735; 84439; 84443; 85025; 87631; 93971; 99284; J1200; J2765

== ENCOUNTER → 2021-08-01 | Outpatient (CLI) | payer OTHER ==
[~2021-08-01] MED LIST changes: -DOXY150C PO; +DOXY150C3 PO; +LIDO5DIS41 TOP; -LISI-898 PO; +LISI5TAB11 PO
== END ==
LOC: M PAIN 11:00
PROVIDERS: ATTEND Nurse Practitioner Family
DX: M54.2 Cervicalgia (principal); G89.29 Other chronic pain; E11.9 Type 2 diabetes mellitus without complications; Z86.59 Personal history of other mental and behavioral disorders; Z87.891 Personal history of nicotine dependence; Z79.899 Other long term (current) drug therapy

== ENCOUNTER 2021-09-23 10:33 | Emergency (ER) | payer OTHER ==
[~2021-09-23] VITALS: Ht 152.4 cm; Wt 50.7 kg
[2021-09-23] MEDS ORDERED: KETOROLAC 30 MG/ML 1ML VIAL IV ONE (11:20)
[2021-09-23] MEDS ORDERED: NS 1,000 ML IV ONE (11:20)
[2021-09-23] MEDS ORDERED: ONDANSETRON 4MG/2ML VIAL IV ONE (11:20)
[2021-09-23] MEDS ORDERED: BENZONATATE 100MG CAPSULE PO ONE (11:20)
[2021-09-23] MEDS: ALBUTEROL 90 MCG/ACT 8GM HFA INHALER INH SCH ×3 (11:45→12:37)
[2021-09-23 11:54] LABS: VENOUS BASE EXCESS 1.5 (-2.0-2.0); VENOUS HCO3 27.2 MEQ/L (23.0-27.0); VENOUS PARTIAL PRESSURE CO2 46.8 mmHg (38.0-50.0); VENOUS PARTIAL PRESSURE O2 32.8 mmHg (30.0-50.0); VENOUS PH 7.382 UNITS (7.330-7.430); VENOUS STANDARD HCO3 24.9 MEQ/L; VENOUS TOTAL CO2 28.6 MEQ/L (24.0-28.0)
[2021-09-23 12:03] LABS: BASO % 0.4 % (0.0-1.0); EOS # 0.1 10^3/uL (0.0-0.5); EOS % 1.4 % (0.0-3.0); HEMATOCRIT 40.8 % (36.0-47.0); HEMOGLOBIN 13.1 g/dl (12.0-15.5); LYMPH # 2.1 10^3/uL (1.5-5.0); LYMPH % 41.9 % (24.0-44.0); MEAN CORPUSCULAR HEMOGLOBIN 28.2 pg (27.0-33.0); MEAN CORPUSCULAR HGB CONC 32.1 g/dl (32.0-36.5); MEAN CORPUSCULAR VOLUME 87.7 fl (80.0-96.0); MONO # 0.4 10^3/uL (0.0-0.8); MONO % 8.5 % (2.0-8.0); NEUTROPHILS # 2.4 10^3/uL (1.5-8.5); NEUTROPHILS % 47.8 % (36.0-66.0); PLATELET COUNT, AUTOMATED 280 10^3/uL (150-450); RED BLOOD COUNT 4.65 10^6/uL (4.00-5.40)
[2021-09-23] MEDS ORDERED: ISOVUE-370 76% 100ML VIAL As Ordered ONE (12:10)
[2021-09-23] MEDS ORDERED: PROAAER10 INH (13:50)
[2021-09-23] MEDS ORDERED: NAPR-837 PO (13:50)
[2021-09-23] MEDS ORDERED: BENZ200C70 PO (13:50)
[2021-09-23] MEDS ORDERED: ONDA4TAB6 PO (13:50)
[2021-09-23 14:00] VITALS: BP 125/80
[2021-09-23] MEDS ORDERED: NIRMATRELVIR/RITONAVIR CO-PACK (EMERGENCY USE AUTH) PO SCH ×2 (14:15→21:00)
== END 2021-09-23 14:38 | disposition home or self-care (01) ==
LOC: M ED 10:33
DX: U07.1 COVID-19 (principal); R55 Syncope and collapse; R06.02 Shortness of breath; R50.9 Fever, unspecified; I10 Essential (primary) hypertension; E78.5 Hyperlipidemia, unspecified; M79.7 Fibromyalgia; A69.20 Lyme disease, unspecified; Z79.899 Other long term (current) drug therapy
CPT/HCPCS: 70450; 71045; 71275; 80047; 82550; 82803; 84484; 84702; 85025; 93005; 94640; 99284; J1885; J2405; Q9967

== ENCOUNTER 2022-11-04 08:36 | Emergency (ER) | payer OTHER ==
[~2022-11-04] VITALS: Ht 152.4 cm; Wt 53.6 kg
[~2022-11-04 08:36] MED LIST changes: +BENZ200C70 PO; +NAPR-837 PO; +PROAAER10 INH
[2022-11-04] MEDS ORDERED: MELO7.5T35 (09:01)
[2022-11-04] MEDS ORDERED: TRUL0.5I SC (09:01)
[2022-11-04] MEDS ORDERED: LANTINJ4 (09:01)
[2022-11-04 09:32] LABS: BASO % 0.2 % (0.0-1.0); EOS # 0.3 10^3/uL (0.0-0.5); EOS % 3.5 % (0.0-3.0); HEMATOCRIT 42.5 % (36.0-47.0); HEMOGLOBIN 13.5 g/dl (12.0-15.5); LYMPH # 2.5 10^3/uL (1.5-5.0); LYMPH % 27.2 % (24.0-44.0); MEAN CORPUSCULAR HEMOGLOBIN 28.1 pg (27.0-33.0); MEAN CORPUSCULAR HGB CONC 31.8 g/dl (32.0-36.5); MEAN CORPUSCULAR VOLUME 88.4 fl (80.0-96.0); MONO # 0.5 10^3/uL (0.0-0.8); MONO % 5.8 % (2.0-8.0); NEUTROPHILS # 5.8 10^3/uL (1.5-8.5); NEUTROPHILS % 63.1 % (36.0-66.0); PLATELET COUNT, AUTOMATED 328 10^3/uL (150-450); RED BLOOD COUNT 4.81 10^6/uL (4.00-5.40); WHITE BLOOD COUNT 9.2 10^3/uL (4.0-10.0)
[2022-11-04 09:54] LABS: INR 0.99; PROTHROMBIN TIME 13.3 SECONDS (12.5-14.5)
[2022-11-04 09:56] LABS: LIPASE 26 U/L (12-53)
[2022-11-04 09:57] LABS: CK-MB VALUE MASS 1.4 NG/ML (<3.6)
[2022-11-04 09:58] LABS: ALBUMIN 3.9 G/DL (3.2-5.2); ALKALINE PHOSPHATASE 81 U/L (46-116); ALT/SGPT 14 U/L (7.0-40); AST/SGOT 16 U/L (<34); BILIRUBIN,DIRECT 0.1 MG/DL (<0.4); BILIRUBIN,TOTAL 0.6 MG/DL (0.3-1.2); TOTAL PROTEIN 7.3 G/DL (5.7-8.2)
[2022-11-04 10:00] LABS: CPK CREATINE PHOSPHOKINASE 102 U/L (34-145); MB/CK RELATIVE INDEX 1.37 (< OR =4)
[2022-11-04 11:10] LABS: CK-MB VALUE MASS 1.6 NG/ML (<3.6)
[2022-11-04 11:11] LABS: CPK CREATINE PHOSPHOKINASE 88 U/L (34-145); MB/CK RELATIVE INDEX 1.81 (< OR =4)
[2022-11-04] MEDS ORDERED: KETOROLAC 30 MG/ML 1ML VIAL IV ONE (11:25)
[2022-11-04 11:30] VITALS: BP 164/96; TEMP 97.1; O2SAT 100
== END 2022-11-04 11:48 | disposition home or self-care (01) ==
LOC: M ED 08:36
DX: R07.89 Other chest pain (principal); I10 Essential (primary) hypertension; E78.5 Hyperlipidemia, unspecified; E11.9 Type 2 diabetes mellitus without complications; E03.9 Hypothyroidism, unspecified; Z87.891 Personal history of nicotine dependence; Z79.4 Long term (current) use of insulin; Z79.899 Other long term (current) drug therapy
CPT/HCPCS: 71045; 80047; 80076; 82550; 82553; 83690; 84484; 85025; 85610; 93005; 93041; 94760; 96374; 99284; J1885

== ENCOUNTER → 2023-09-19 | Outpatient (CLI) | payer OTHER ==
[~2023-09-19] MED LIST changes: -DOXY150C3 PO; +DOXY150C5 PO; +LANTINJ4; +MELO7.5T35; +PROHANCE 279.3MG/ML 5ML VIAL ONE; +TRUL0.5I SC
== END ==
LOC: M PLAIMG 12:46
PROVIDERS: ATTEND Nurse Practitioner Primary Care
DX: N28.1 Cyst of kidney, acquired (principal)
CPT/HCPCS: 74183; A9576